=== PATIENT | male | born 1945 | race Caucasian/White ===

== ENCOUNTER → 2018-03-11 | Outpatient (CLI) | payer MEDICARE ==
[~2018-03-11] MED LIST: ALBUTEROL2.5 MG/31 INH; AMARYL4 MG; AMARYL4 MG PO; ARICEPT 5 MG TAB5 MG PO; ARICEPT10 M1 PO; ASA81BEC PO; AZITHROMYCIN 2250 MG PO; BACTRIM DS TAB1 EACH PO; CEFPODOXIME PR200 M1 PO; CIPROFLOXACIN500 M1 PO; CIPROFLOXACIN500 M3; CIPROFLOXACIN500 M3 PO; CLEOCIN HCL150 MG PO; CLONAZEPAM 0.50.5 M1 PO; CLONAZEPAM 1 MG1 M1; DOCUSATE SODIU100 MG; DUONEB 2.5-0.5 M3 ML INH; FINASTERIDE5 MG PO; FLOMAX0.4 MG PO; FUROSEMIDE 40 M40 M1 PO; FUROSEMIDE 40 M40 MG PO; GLUCOPHAGE500 MG; GLUCOPHAGE500 MG PO; HYDROCODON-ACE1 EAC7 PO; HYDROCODON-ACE1 EAC8 PO; HYDROCODONE-AP1 EAC6 PO; K-DUR 20 MEQ T20 MEQ PO; KEFLEX500 MG; KEFLEX500 MG PO; KLONOPIN0.5 MG PO; LASIX 40 MG TAB40 M2 PO; LASIX 80 MG TAB80 M1; LEVAQUIN 500 M500 M2 PO; LEVOFLOXACIN750 MG PO; LISINOPRIL10 MG PO; LOW DOSE ASPIRI81 M1 PO; MAGNESIUM OXID200 MG PO; MAGOX 400400 MG PO; METFORMIN HCL500 MG PO; MUCINEX TA600 MG/TA2 PO; MUCUS RELIEF600 M1 PO; MUPIROCIN22 GM TOP; NEURONTIN 300300 M1 PO; NORCO 5-325 TA1 EACH PO; NORVASC5 MG PO; POTASSIUM20 PO; PREDNISONE 10 M10 MG PO; PROTONIX40 M1 PO; PYRIDIUM200 M1 PO; TAMSULOSIN HCL0.4 M1; VITAMINC500 PO; ZAROXOLYN 5MG TA5 M1 PO; ZAROXOLYN 5MG TA5 MG PO
== END ==
LOC: M.WC 07:56
DX: E11.622 Type 2 diabetes mellitus with other skin ulcer (principal); L97.821 Non-pressure chronic ulcer of other part of left lower leg limited to breakdown of skin; I87.312 Chronic venous hypertension (idiopathic) with ulcer of left lower extremity; I50.9 Heart failure, unspecified; K21.9 Gastro-esophageal reflux disease without esophagitis; E66.9 Obesity, unspecified; G47.30 Sleep apnea, unspecified; G30.8 Other Alzheimer's disease; F02.80 Dementia in other diseases classified elsewhere, unspecified severity, without behavioral disturbance, psychotic disturbance, mood disturbance, and anxiety; Z68.41 Body mass index [BMI] 40.0-44.9, adult; Z79.82 Long term (current) use of aspirin

== ENCOUNTER → 2018-03-18 | Outpatient (CLI) | payer MEDICARE | LOC: M.WC 01:33 | DX: E11.622 Type 2 diabetes mellitus with other skin ulcer (principal); L97.821 Non-pressure chronic ulcer of other part of left lower leg limited to breakdown of skin; I87.312 Chronic venous hypertension (idiopathic) with ulcer of left lower extremity; I50.9 Heart failure, unspecified; E66.9 Obesity, unspecified; G47.30 Sleep apnea, unspecified; K21.9 Gastro-esophageal reflux disease without esophagitis; G30.9 Alzheimer's disease, unspecified; F02.80 Dementia in other diseases classified elsewhere, unspecified severity, without behavioral disturbance, psychotic disturbance, mood disturbance, and anxiety; Z68.41 Body mass index [BMI] 40.0-44.9, adult ==

== ENCOUNTER → 2018-03-25 | Outpatient (CLI) | payer MEDICARE | LOC: M.WC 04:33 | DX: E11.622 Type 2 diabetes mellitus with other skin ulcer (principal); I87.312 Chronic venous hypertension (idiopathic) with ulcer of left lower extremity; L97.821 Non-pressure chronic ulcer of other part of left lower leg limited to breakdown of skin; I89.0 Lymphedema, not elsewhere classified; I50.9 Heart failure, unspecified; G47.30 Sleep apnea, unspecified; G30.9 Alzheimer's disease, unspecified ==

== ENCOUNTER → 2018-04-01 | Outpatient (CLI) | payer MEDICARE | LOC: M.WC 04:49 | DX: E11.622 Type 2 diabetes mellitus with other skin ulcer (principal); L97.821 Non-pressure chronic ulcer of other part of left lower leg limited to breakdown of skin; I87.312 Chronic venous hypertension (idiopathic) with ulcer of left lower extremity; I50.9 Heart failure, unspecified; E66.9 Obesity, unspecified; G47.30 Sleep apnea, unspecified; G30.9 Alzheimer's disease, unspecified; K21.9 Gastro-esophageal reflux disease without esophagitis; F02.80 Dementia in other diseases classified elsewhere, unspecified severity, without behavioral disturbance, psychotic disturbance, mood disturbance, and anxiety; Z68.41 Body mass index [BMI] 40.0-44.9, adult ==

== ENCOUNTER → 2018-04-08 | Outpatient (CLI) | payer MEDICARE | LOC: M.WC 03:03 | DX: E11.622 Type 2 diabetes mellitus with other skin ulcer (principal); L97.828 Non-pressure chronic ulcer of other part of left lower leg with other specified severity; I87.312 Chronic venous hypertension (idiopathic) with ulcer of left lower extremity; E66.9 Obesity, unspecified; I50.9 Heart failure, unspecified; K21.9 Gastro-esophageal reflux disease without esophagitis; G47.30 Sleep apnea, unspecified; G30.9 Alzheimer's disease, unspecified; F02.80 Dementia in other diseases classified elsewhere, unspecified severity, without behavioral disturbance, psychotic disturbance, mood disturbance, and anxiety; Z68.41 Body mass index [BMI] 40.0-44.9, adult ==

== ENCOUNTER 2019-03-22 16:12 | Inpatient (IN) | payer OTHER ==
[~2019-03-22] VITALS: Ht 175.3 cm; Wt 133.8 kg
[2019-03-22 16:25] VITALS: BP 151/79
[2019-03-22] MEDS ORDERED: FINASTERIDE5 MG PO (16:30)
[2019-03-22] MEDS ORDERED: FLOMAX0.4 MG PO (16:30)
[2019-03-22 16:53] LABS: HEMATOCRIT 46.6 % (42.0-52.0); HEMOGLOBIN 15.4 gm/dL (14.0-18.0); MCH 29.1 pg (26.0-34.0); MCHC 33.1 g/dL (28.0-37.0); MPV 9.1 fl. (7.2-11.1); NUCLEATED RBCS 0 /100WBC; PLATELET COUNT* 138 thou/uL (150-400); RDW-CV 15.2 % (10.5-14.5); WBC 13.5 thou/uL (4.0-11.0)
[2019-03-22 17:04] LABS: APTT 25.3 Seconds (25.0-31.3); PROTIME 10.4 Seconds (9.20-11.50)
[2019-03-22 17:05] LABS: ANION GAP 7 mmol/L (7-16); BUN 24 mg/dL (7-18); CALCIUM 8.4 mg/dL (8.5-10.1); CHLORIDE 97 mmol/L (98-107); CO2 32 mmol/L (21-32); CREATININE 1.4 mg/dL (0.6-1.3); GLUCOSE 381 mg/dL (70-99); POTASSIUM 4.1 mmol/L (3.5-5.1); SODIUM 136 mmol/L (136-145)
[2019-03-22 17:14] LABS: ALBUMIN 3.3 g/dL (3.4-5.0); ALKALINE PHOSPHATASE 90 U/L (46-116); NT-PRO BRAIN NAT PEPTIDE 317 pg/mL (<300); SGOT 10 U/L (15-37); SGPT 22 U/L (30-65); TOTAL BILIRUBIN 1.9 mg/dL (<0.1-1.0); TOTAL PROTEIN 7.6 g/dL (6.4-8.2); TROPONIN-I LEVEL <0.06 ng/mL (<0.06)
[2019-03-22 17:40] LABS: ABSOLUTE LYMPHOCYTES 0.5 thou/uL (0.8-5.3); ABSOLUTE MONOCYTES 1.1 thou/uL (0.0-1.2); ABSOLUTE NEUTROPHILS 11.9 thou/uL (1.6-8.1); ANISOCYTOSIS Occasional
[2019-03-22 17:41] LABS: LARGE PLATELETS RARE; PLATELET ESTIMATE ADEQUATE
--- NOTE | 2019-03-22 18:43 | NUR ---
PT GIVEN ICE WATER PER REQUEST.
[2019-03-22 19:15] VITALS: BP 158/82
[2019-03-22 21:00] VITALS: BP 105/60
[2019-03-22] MEDS ORDERED: METFORMIN HCL500 MG PO (22:48)
[2019-03-23 00:25] VITALS: BP 149/99
[2019-03-23 04:30] VITALS: BP 125/72
[2019-03-23 05:22] LABS: HEMATOCRIT 44.2 % (42.0-52.0); HEMOGLOBIN 14.8 gm/dL (14.0-18.0); MCH 29.2 pg (26.0-34.0); MCHC 33.6 g/dL (28.0-37.0); MPV 9.5 fl. (7.2-11.1); RBC 5.08 mil/uL (4.50-6.00); RDW-CV 15.5 % (10.5-14.5); WBC 13.9 thou/uL (4.0-11.0)
[2019-03-23 05:39] LABS: ALBUMIN 2.9 g/dL (3.4-5.0); CALCIUM 8.3 mg/dL (8.5-10.1); CREATININE 1.4 mg/dL (0.6-1.3); MAGNESIUM 1.7 mg/dL (1.8-2.4); POTASSIUM 4.4 mmol/L (3.5-5.1); TOTAL BILIRUBIN 2.2 mg/dL (<0.1-1.0); TOTAL PROTEIN 7.2 g/dL (6.4-8.2)
--- NOTE | 2019-03-23 05:39 | NUR ---
REPORT RECIEVED FROM ER. PT ORIENTED TO ROOM, CALL LIGHT SHOWN, FALL AGREEMENT WENT OVER, PT STATED UNDERSTANDING. PT REFUSED BED ALARM, AND EDUCATED ON RISKS OF FALLING PT KEPT SAYING "I AM FINE". PICTURES OF CHOCO ENGEL TAKEN, ER STATED THAT THEY REMOVED DRESSINGS. PT STATES THAT HIS GRANDSON WRAPS THEM, AND REFUSED TO HAVE THEM REWRAPPED THIS SHIFT STATING "I AM GOING HOME TOMORROW ANYWAYS." PT ALSO STATES THAT HE HAS COCCYX WOUND BUT REFUSED TO LET THIS RN SEE OR TAKE A PICTURE OF IT. IV PATENT. TELE MONITOR IN PLACE. NO REPORTS OF PAIN OR NAUSEA. WILL CONTINUE WITH PLAN OF CARE.
[2019-03-23 08:00] VITALS: BP 121/67
--- NOTE | 2019-03-23 08:27 | NUR ---
Pt is A&O. Resides at home with his . Pt states that he is his 's caregiver post a CVA in 2007. Pt has a lady that comes in daily, to assist with , cook and clean. Family is home with while Pt is in the hospital. Pt uses a cane for mobility. Pt has home o2 and a trilogy through [employer]. Normally independent and active. Hx of [facility]. No hx of SNF. Goal is home at dc, Pt states that he may want HH at dc. Following.
--- NOTE | 2019-03-23 09:46 | EKG ---
[place] [address] ELECTROCARDIOGRAM REPORT Name: KRAIG HERNANDEZ Room: [address] ADM IN .R.#: [id number] Admission: 03/22/19 Attend Phys: Lyndsay Glynn MD Discharge: Date of : 41 Report #: [id number] THIS REPORT FOR: //name// [facility] ED Test Date: 2019-03-22 Test Time: 16:54:27 Pat Name: KRAIG HERNANDEZ Department: Room: [facility] Gender: M Mft: : 1945 Requested By: Jose Mena Order Number: [id number] MD: Anastacio Schulte Measurements Intervals [place] Rate: 108 P: -53 MA: 152 QRS: -30 QRSD: 121 T: 34 QT: 340 QTc: 456 Interpretive Statements Sinus or ectopic atrial tachycardia Ventricular premature complex Right bundle branch block Compared to ECG 08/26/2016 12:31:56 Right bundle-branch block now present Sinus rhythm no longer present Electronically Signed On 03-23-2019 9:45:57 CDT by Anastacio Schulte [email or web address] <ELECTRONICALLY SIGNED> By: Anastacio Schulte MD, [facility] 03/23/19 0945 [id number] [id number] Anastacio Schulte MD, [facility] /EPI
[2019-03-23 12:15] VITALS: BP 127/61
--- NOTE | 2019-03-23 15:34 | NUR ---
ASSUMED PT CARE AT 0800, AOX4, UP SBA, O2 SAT 90'S 2L NC. TRACING SA, BBB ON TELE. DENIES PAIN. PT FOR ACCU CHECK. ON CARB CONTROL DIET. EDEMA ON BILATERAL LOWER EXTREMITIES NOTED. REDNESS ON COCCYX AREA NOTED, BARRIER CREAM GIVEN. IV ACCESS INTACT, FLUID RUNNING. LAST BM 03/22/19. PT FOR CT CHEST. VSS, AM ASSESSMENT CHARTED. MEDS GIVEN PER SEP. CALL LIGHT WITHIN REACH. WILL CONTINUE TO MONITOR.
--- NOTE | 2019-03-23 16:29 | NUR ---
Pt states that he wears a Trilogy at home when he wants. He stated that Dr. Downing said he was not required to wear it, so he does not wear it much at all. He states that it has been 2 months since he has worn it. He is not having his brought in and will not wear one of hospital Bipaps.
[2019-03-23 16:43] VITALS: BP 143/80
[2019-03-23 19:45] VITALS: BP 126/64
[2019-03-23 21:59] LABS: PO2 73.4 mmHg (75.0-100.0); pH 7.366 (7.340-7.450)
[2019-03-23 22:02] LABS: PCO2 50.7 mmHg (35.0-45.0)
[2019-03-24] VITALS: BP 112/56
[2019-03-24 04:00] VITALS: BP 121/65
[2019-03-24 04:58] LABS: ABSOLUTE LYMPHOCYTES 0.7 thou/uL (0.8-5.3); ABSOLUTE MONOCYTES 0.9 thou/uL (0.0-1.2); ABSOLUTE NEUTROPHILS 12.9 thou/uL (1.6-8.1); BASOPHILS 0.1 %; HEMATOCRIT 42.7 % (42.0-52.0); HEMOGLOBIN 14.2 gm/dL (14.0-18.0); LYMPHOCYTES 4.5 %; MCH 29.1 pg (26.0-34.0); MCHC 33.3 g/dL (28.0-37.0); MCV 87.6 fL (80.0-100.0); MONOCYTES 6.5 %; MPV 9.9 fl. (7.2-11.1); NUCLEATED RBCS 0 /100WBC; PLATELET COUNT* 125 thou/uL (150-400); POLYS 88.9 %; RBC 4.88 mil/uL (4.50-6.00); WBC 14.5 thou/uL (4.0-11.0)
[2019-03-24 05:09] LABS: ANION GAP 6 mmol/L (7-16); BUN 35 mg/dL (7-18); CALCIUM 8.3 mg/dL (8.5-10.1); CHLORIDE 99 mmol/L (98-107); CHOLESTEROL 132 mg/dL (<200); CO2 31 mmol/L (21-32); CREATININE 1.4 mg/dL (0.6-1.3); GLUCOSE 118 mg/dL (70-99); HDL CHOLESTEROL 80 mg/dL (>40); LDL CHOLESTEROL 42 mg/dL (<100); POTASSIUM 4.3 mmol/L (3.5-5.1); SODIUM 136 mmol/L (136-145); TC:HDL 1.7 Ratio (Not establshd); TRIGLYCERIDE 50 mg/dL (<150); VLDL 10 mg/dL (<40)
[2019-03-24 05:12] LABS: SERUM ASSESSMENT Clear
[2019-03-24 08:00] VITALS: BP 146/69
--- NOTE | 2019-03-24 08:14 | NUR ---
PT AWAKE MOST OF SHIFT. ASSESSMENT DOCUMENTED. MEDS GIVEN PER E-MAR. IV PATENT, FLUIDS FINISHED INFUSING. PT WEAKER AND MORE CONFUSED THIS SHIFT. PT NON COMPLIENT WITH O2, PT WHEEZY, DR NOTIFIED, ORDERS RECIEVED. PT NOT VOIDED THIS SHIFT BUT FELT URGE. BLADDER SCANNER READIN 676ML. NOTIFED. 3 NURSES UNABLE TO STRAIGHT CATH PATIENT, DR NOTIFED, UROLOGY CONSULTED. WILL CONTINUE WITH PLAN OF CARE.
[2019-03-24 12:43] VITALS: BP 105/53
[2019-03-24 13:00] LABS: BE 2.5 mmol/L (-2 to +3); PO2 68.4 mmHg (75.0-100.0); pH 7.371 (7.340-7.450)
[2019-03-24 13:06] LABS: PCO2 50.8 mmHg (35.0-45.0)
--- NOTE | 2019-03-24 15:48 | 2DMMODE ---
[place] [address] 2 D/M-MODE ECHOCARDIOGRAM Name: KRAIG HERNANDEZ Room: [address] IN [facility]#: [id number] Admission: 03/22/19 Attend Phys: Lyndsay Glynn, Discharge: Date of : 41 Date of Service: 03/24/19 1547 Report #: [id number] THIS REPORT FOR: //name// APPROVED REPORT Study performed: 03/24/2019 14:37:04 EXAM: Comprehensive 2D, Doppler, and color-flow Echocardiogram Patient Location: In-Patient Room #: 220 Status: routine BSA: 2.43 HR: 122 bpm BP: 146/69 mmHg Rhythm: NSR Other Information Technically limited study due to poor endocardial definition, body habitus. Indications Dyspnea Echo Enhancing Agent Indication: Endocardial border delineation Agent(s) / Amount(s) Used: Optison 3 cc 2D Dimensions IVSd: 13.86 (7-11mm) LVOT Diam: 21.33 (18-24mm) LVDd: 40.71 mm PWd: 12.53 (7-11mm) Ascending Ao: 30.81 (22-36mm) LVDs: 27.67 (25-40mm) Aortic Root: 35.07 mm Volumes Left Atrial Volume (Systole) LA ESV Index: 26.40 mL/m2 Aortic Valve AoV Peak Brian.: 1.49 m/s AO Peak Gr.: 8.89 mmHg LVOT Max P.24 mmHg AO Mean Gr.: 5.95 mmHg LVOT Mean P.22 mmHg LVOT Max V: 1.03 m/s AO V2 VTI: 23.54 cm LVOT Mean V: 0.69 m/s JASON (VTI): 2.22 cm2 LVOT V1 VTI: 14.62 [place] [address] 2 D/M-MODE ECHOCARDIOGRAM Name: KRAIG HERNANDEZ Room: [address] IN [facility]#: [id number] Admission: 03/22/19 Attend Phys: Lyndsay Glynn, Discharge: Date of : 41 Date of Service: 03/24/19 1547 Report #: [id number] Mitral Valve E/A Ratio: 1.09 MV Decel. Time: 163.36 ms MV E Max Brian.: 1.05 m/s MV PHT: 47.37 ms MVA (PHT): 4.64 cm2 Pulmonary Valve PV Peak Brian.: 1.03 m/s PV Peak Gr.: 4.28 mmHg Tricuspid Valve RAP Estimate: 15.00 mmHg TR Peak Gr.: 30.52 mmHg RVSP: 45.00 mmHg PA Pressure: 45.00 mmHg Left Ventricle The left ventricle is normal size. There is normal LV segmental wall motion. Mild concentric left ventricular hypertrophy. Left ventricular systolic function is normal. The left ventricular ejection fraction is within the normal range. LVEF is 55-60%. The left ventricular diastolic function is normal. Right Ventricle The right ventricle is normal size. The right ventricular systolic function is normal. Atria The left atrium size is normal. The right atrium size is normal. Aortic Valve The Aortic valve is sclerotic. No aortic regurgitation is present. There is no aortic valvular stenosis. Mitral Valve The mitral valve is normal in structure. There is no mitral valve regurgitation noted. No evidence of mitral valve stenosis. Tricuspid Valve The tricuspid valve is normal in structure. Mild tricuspid regurgitation. estimated pa pressure 50 mm Hg Pulmonic Valve The pulmonary valve is normal in structure. There is no pulmonic [place] [address] 2 D/M-MODE ECHOCARDIOGRAM Name: KRAIG HERNANDEZ Merlene Room: [address]#: [id number] Admission: 03/22/19 Attend Phys: Lyndsay Glynn, Discharge: Date of : 41 Date of Service: 03/24/19 1547 Report #: [id number] Great Vessels The aortic root is normal in size. IVC is dilated and collapses <50% with inspiration. Pericardium There is no pericardial effusion. <Conclusion> Mild concentric left ventricular hypertrophy. LVEF is 55-60%. The Aortic valve is sclerotic. Mild tricuspid regurgitation. estimated pa pressure 50 mm Hg <ELECTRONICALLY SIGNED> By: Anastacio Schulte MD, FACC 03/24/19 1547 1547 [id number] Anastacio Schulte MD, FACC /INF
[2019-03-24 15:56] VITALS: BP 134/64
--- NOTE | 2019-03-24 17:35 | NUR ---
ASSUMED PT CARE AT 0800, AOX3, UP WITH ASSIST, O2 SAT 90'S 2L NC. PT TRACING SINUS TACH, BBB, 1ST DEGREE ON TELE.PT FEELS TIRED TODAY, HAVE SOA, COMPLAINS OF LEG PAIN. PT HAS UROLOGY CONSULT AND WOUND CONSULT. PT HAS JUAREZ CATH DRAINING WELL. PT FOR ACCU CHECK. PT HAD ECHO. HAD PCO2 CRITICAL, NOTIFIED. AM ASSESSMENT CHARTED. MEDS GIVEN PER SEP. CALL LIGHT WITHIN REACH. WILL CONTINUE TO MONITOR.
[2019-03-24 20:40] VITALS: BP 126/66
[2019-03-25] VITALS: BP 134/70
[2019-03-25 04:00] VITALS: BP 145/68
[2019-03-25 04:28] LABS: ABSOLUTE LYMPHOCYTES 0.7 thou/uL (0.8-5.3); ABSOLUTE MONOCYTES 1.2 thou/uL (0.0-1.2); ABSOLUTE NEUTROPHILS 12.5 thou/uL (1.6-8.1); BASOPHILS 0.1 %; LYMPHOCYTES 4.8 %; MCH 28.8 pg (26.0-34.0); MCHC 32.6 g/dL (28.0-37.0); MCV 88.3 fL (80.0-100.0); MONOCYTES 8.2 %; MPV 10.1 fl. (7.2-11.1); NUCLEATED RBCS 0 /100WBC; PLATELET COUNT* 116 thou/uL (150-400); POLYS 86.9 %; RBC 4.53 mil/uL (4.50-6.00); RDW-CV 15.1 % (10.5-14.5); WBC 14.4 thou/uL (4.0-11.0)
[2019-03-25 05:19] LABS: CALCIUM 7.7 mg/dL (8.5-10.1); CREATININE 1.3 mg/dL (0.6-1.3); MAGNESIUM 2.3 mg/dL (1.8-2.4); POTASSIUM 3.7 mmol/L (3.5-5.1)
--- NOTE | 2019-03-25 05:48 | NUR ---
PT SLEPT MOST OF SHIFT. ASSESSMENT DOCUMENTED. MEDS GIVEN PER E-SEP. IV PATENT. JUAREZ DRAINING DEPENDANTLY. PT SLEPT IN BED WITH HOME TRILOGY ON. O2 TURNED UP TO 3.5 BLED INTO TRILOGY TO KEEP SATS OVER 90%. WILL CONTINUE WITH PLAN OF CARE.
--- NOTE | 2019-03-25 14:49 | NUR ---
WOUND CARE NOTE: CONSULT RECEIVED FOR LYMPHEDEMA PATIENT PRESENTS WITH WHAT APPEARS TO BE CHRONIC VENOUS STASIS R/T HEMOSIDERING STAINING. RIGHT INSTEP: 32.2CM RIGHT ANKLE: 35.5 RIGHT CALF: 48 LEFT INSTEP: 27 LEFT ANKLE: 29.5 LEFT CALF: 42 NO OPEN WOUNDS NOTED. APPLIED 4-LAYER WRAPS TO BILATERAL LEGS. EDUCATED PATIENT ON KEEPING LEGS ELEVATED TO PROMOTE EDEMA REDUCTION, COMMUNICATED UNDERSTANDING, BUT WILL NEED REINFORCEMENT. EDUCATED ON NOTIFYING RN IF WRAPS FEEL TOO TIGHT, COMMUNICATED UNDERSTANDING. RECOMMEND KEEP LEGS ELEVATED WHEN AT REST FOLLOW UP WITH OUTPATIENT LYMPHEDEMA THERAPY-CARD WITH PHONE # GIVEN. HH TO HAVE LAYERED WRAPS CHANGED M-W-F PREFERRED
[2019-03-25 16:00] VITALS: BP 105/54
--- NOTE | 2019-03-25 16:28 | NUR ---
PT A/O X'S 4. VSS. AFEBRILE. PT UP WITH 1 AND WALKER TO BATHROOM. PT FELT SHORT OF BREATH, O2 OFF. TRIOLOGY PLACED PER PT REQUEST. OXYGEN SATURATION WENT FROM 88% TO 97%. WOUND CARE SAW PATIENT AND LEGS WRAPPED BILATERALLY.
--- NOTE | 2019-03-25 18:57 | NUR ---
ASSUMED CARE OF PT AT APPROX 1645, PT A/O X4, UP WITH ASSIST/WALKER TO CHAIR FOR DINNER. DENIES PAIN, ANN DD. INSULIN HELD DUE TO LOWER BLOOD GLUCOSE. O2 SAT 93% ON 3L.PT CALLS APPROPRIATLY FOR NEEDS. WILL CONTINUE TO MONITOR.
[2019-03-25 19:40] VITALS: BP 123/72
--- NOTE | 2019-03-25 23:33 | NUR ---
ASSUMED CARE OF PT AT 1900. PT IS ALERT AND ORIENTED. VSS. PERRLA. NO COMPLAINTS OF PAIN. UP WITH 1 ASSIST. PT IS CURRENTLY ON HIS HOME TRILOGY WITH 2 LITERS OF O2. PT IS IN SINUS RYTHM ON THE TELEMETRY. PT IS RESTING COMFORTABLY IN BED. RESPIRATIONS ARE EVEN AND NONLABORED. WILL CONTINUE TO MONITOR PT.
[2019-03-26] VITALS: BP 142/78
[2019-03-26 04:00] VITALS: BP 115/55
[2019-03-26 05:25] LABS: CALCIUM 7.7 mg/dL (8.5-10.1); CREATININE 1.3 mg/dL (0.6-1.3); POTASSIUM 3.5 mmol/L (3.5-5.1)
--- NOTE | 2019-03-26 08:44 | NUR ---
LATE ENTRY FOR 03/24/19 @14:30: PATIENT SEEN FOR FOR WOUND CARE AT PATIENT'S REQUEST. PATIENT PRESENTS WITH 4+ PITTING EDEMA TO BLE WITH RUBOR AND PURPLISH DISCOLORATION ON DISTAL FEET. PATIENT USUALLY WEARS FARROW WRAPS FOR COMPRESSION WHICH HE BROUGHT WITH HIM. WAS ABLE TO DOPPER PT AND DP PULSES BILATERALLY AND WERE BIPHSIC. PATIENT WAS REPORTING THAT HE IS UNABLE TO SLEEP IN A BED AND USUALLY SLEEPS IN A CHAIR BECAUSE HE BECOMES SOB. ALSO STATES THIS IMPROVES IF SITTING UPRIGHT AFTERWARDS. PATIENT ENCOURAGED TO WEAR HIS FARROW WRAPS AND LET INPATIENT WOUND CARE NURSE COME SEE HIM. PATIENT AGREES TO THIS.
[2019-03-26 11:57] VITALS: BP 141/75
--- NOTE | 2019-03-26 12:14 | NUR ---
Nutrition: Pt seen for pressure ulcer risk on coccyx. 4+ pitting edema in BLE, purplish feet noted by wound RN. Admitted with lymphedema. Has had CHO/low Na educ in past. CHO) controlled diet ordered. Wt: 295#. On insulin, albuterol. Labs: BG 50-152, albumin 2.9, elevated WBC. Beneprotein is ordered. GOALS: good po and protein intake, tight BG control. Mild risk.
[2019-03-26 15:58] VITALS: BP 129/67
[2019-03-26 19:15] VITALS: BP 124/76
[2019-03-26 20:58] LABS: BE 6.2 mmol/L (-2 to +3); PO2 74.3 mmHg (75.0-100.0); pH 7.356 (7.340-7.450)
[2019-03-26 21:01] LABS: PCO2 62.1 mmHg (35.0-45.0)
[2019-03-27 03:45] LABS: URINE BILIRUBIN NEGATIVE (Negative); URINE BLOOD 2+ (Negative); URINE CLARITY CLEAR; URINE COLOR YELLOW; URINE GLUCOSE-RANDOM NEGATIVE (Negative); URINE KETONES NEGATIVE (Negative); URINE LEUKOCYTES-REFLEX NEGATIVE (Negative); URINE NITRITE-REFLEX NEGATIVE (Negative); URINE PROTEIN TRACE (Negative); URINE UROBILINOGEN 0.2 E.U./dl (0.2-1.0)
[2019-03-27 04:00] VITALS: BP 125/68
--- NOTE | 2019-03-27 04:00 | NUR ---
ASSUMED CARE OF PT AT 1900. PT IS VERY [place]. PT STATES HE DOESNT FEEL RIGHT. DR NOTIFIED AND ABG DONE. PTS CO2 ELEVATED AT 62. PULMONARY IS CONSULTED. PT ENCOURAGED TO KEEP HIS TRILOGY ON. PT HAS KEPT IT ON FOR MOST OF THE NIGHT TONIGHT. PT IS IN SINUS RYTHM ON THE TELEMETRY. PT IS RESTING COMFORTABLY IN BED. RESPIRATIONS ARE EVEN AND NONLABORED. WILL CONTINUE TO MONITOR PT.
[2019-03-27 04:46] LABS: HYALINE CASTS 4-10 Moderate /LPF (None Seen); SQUAMOUS 0-3 Few /LPF (0-3)
[2019-03-27 04:47] LABS: ABSOLUTE EOSINOPHILS 0.1 thou/uL (0.0-0.7); ABSOLUTE LYMPHOCYTES 0.5 thou/uL (0.8-5.3); ABSOLUTE NEUTROPHILS 7.3 thou/uL (1.6-8.1); BASOPHILS 0.2 %; EOSINOPHILS 0.7 %; HEMATOCRIT 39.3 % (42.0-52.0); HEMOGLOBIN 12.9 gm/dL (14.0-18.0); LYMPHOCYTES 5.2 %; MCH 28.8 pg (26.0-34.0); MCHC 32.8 g/dL (28.0-37.0); MCV 87.9 fL (80.0-100.0); MONOCYTES 10.9 %; MPV 9.7 fl. (7.2-11.1); NUCLEATED RBCS 0 /100WBC; PLATELET COUNT* 139 thou/uL (150-400); RBC 4.47 mil/uL (4.50-6.00); RDW-CV 15.3 % (10.5-14.5); WBC 8.8 thou/uL (4.0-11.0)
[2019-03-27 04:47] LABS: BACTERIA-REFLEX None Seen /HPF (None Seen); CRYSTALS None Seen /LPF (None Seen); URINE RBC 3-10 Few /HPF (0-2); URINE WBC-REFLEX None Seen /HPF (0-5)
[2019-03-27 05:07] LABS: CALCIUM 7.9 mg/dL (8.5-10.1); CREATININE 1.2 mg/dL (0.6-1.3); POTASSIUM 3.3 mmol/L (3.5-5.1)
[2019-03-27 11:37] VITALS: BP 125/74
[2019-03-27 15:24] VITALS: BP 127/66
[2019-03-28] VITALS: BP 150/79
[2019-03-28 03:46] VITALS: BP 155/67
[2019-03-28 04:35] LABS: CALCIUM 8.1 mg/dL (8.5-10.1); CREATININE 1.1 mg/dL (0.6-1.3); MAGNESIUM 1.9 mg/dL (1.8-2.4); POTASSIUM 3.2 mmol/L (3.5-5.1)
--- NOTE | 2019-03-28 07:36 | NUR ---
PT CARE ASSUMED AT 1930. SAT MAINTAINED IN [facility]. PT CONFUSED LAST NIGHT. SAYS WHEN HE CLOSE HIS EYES AND OPENS THEM UP, SEES WEIRD STUFF ON THE WALL WHICH IS NOT NORMAL. THIS NURSE ASKED IF HE IS HEARING ANY VOICES ON HIS HEAD, WHICH HE DENIED. DENIES PAIN. PT IS IMPULSIVE, REFUSES TO BE ON FALL PRECAUTIONS, EDUCATION GIVEN NEEDS REINFORCEMENT. FAMILY MEMBERS AT BEDSIDE FOR A WHILE. CALL LIGHT WITHIN REACH AND BED IN LOW POSITION. HOURLY ROUNDING DONE FOR PT SAFETY. THIS AM PT SEEMS LITTLE MORE CALM. SLEPT IN THE RECLINER.
[2019-03-28 08:00] VITALS: BP 145/84
--- NOTE | 2019-03-28 08:24 | CON ---
[address] [address] CONSULTATION Name: KRAIG HERNANDEZ Room: [address] IN ..#: [id number] Admission: 03/22/19 Attend Phys: Lyndsay Glynn MD Discharge: Date of : 41 Report #: [id number] THIS REPORT FOR: //name// CC: Anastacio Glynn DATE OF SERVICE: 03/27/2019 ATTENDING PHYSICIAN: Dr. Gutierrez. LOCATION: The patient is located in room #220. INDICATION FOR CONSULTATION: Acute hypoxic hypercarbic respiratory failure, obstructive sleep apnea and hypoventilation syndrome. CLINICAL SUMMARY: The patient is a 73-year-old male with diabetes mellitus type 2, who had had shortness of breath and dizziness over the 3-4 days prior to admission. It was worse when he stood up. He is taking care of his 's stroke and she has had difficulties and problems at home. His son was at the bedside and helped with history. He denies any cough or wheezing. He is chronically short of breath and he does not like to wear his Trilogy. He has a Trilogy at home. He has been on oxygen for 4-5 years at home for obstructive sleep apnea. He falls asleep while he drives a car and he sleeps sitting up in the chair. He does not lay flat in bed and he has had problems like this for the past several years. He is in large term denial for that. He has not lost any weight. He does not exercise or get up and move around and basically now he wants to be transferred to another facility because he does not think he is getting the care he needs. Somebody helped him with breakfast this morning. He is still not wearing his Trilogy at night and during the day and he desaturates anywhere from 2-4 liters. He will go down to 80-85% and when he put his Trilogy on he comes back up to 93% on the 3 liters. Denies cough or wheezing or smoking history. PAST MEDICAL HISTORY: He has had a history of diabetes mellitus type 2 with hyperglycemia. He has had some chronic left lower lobe infiltrate; looks like old scar tissue and chest wall pain; had some mild fluid overload and pulmonary artery hypertension, but the ejection fraction has been around 55-60%. ALLERGIES: He has no known medical allergies. PAST SURGICAL HISTORY: It looks he has had lymphedema in both legs, inguinal hernia repair in 63, appendectomy at age 4, tonsillectomy as a child. He had a TURP in 04/2008 and again had a history of kidney stones and chronic kidney disease stage 3. OUTPATIENT MEDICATIONS: Include finasteride 5 mg daily, furosemide [address] [place] [address] CONSULTATION Name: KRAIG HERNANDEZ Merlene Room: [address] IN [facility]#: [id number] Admission: 03/22/19 Attend Phys: Lyndsay Glynn MD Discharge: Date of : 41 Report #: [id number] daily, gabapentin 300 mg t.i.d., metformin 500 mg b.i.d., donepezil or Aricept 10 mg daily for some short-term memory loss, amlodipine or Norvasc 5 mg daily, tamsulosin 4 mg daily, glyburide 2 mg daily. He is on some p.r.n. breathing treatments at this time and again he supposed to be on 3 liters and then Trilogy at night and with naps during the day. FAMILY HISTORY: Positive for diabetes. SOCIAL HISTORY: The patient has been twice. This is his second . He is with his son who is his older adult son who I believe is his durable power of senior attorney, has a different mother. He seems quite supportive. The patient is a nonsmoker, nondrinker. He has had some short-term memory loss. REVIEW OF SYSTEMS: A 14-point review of systems reviewed and negative except for pertinent positives noted in the HPI and again basically those included short-term memory loss. He denies any numbness, tingling. He does have weakness when he tries to stand; legs have been swollen. PHYSICAL EXAMINATION: GENERAL: This is a somewhat agitated 73-year-old male who is not happy to see me. He says he wants to get transferred out of this hospital. VITAL SIGNS: Stable. Blood pressure was 125/70, his heart rate was 84, respirations were 16 and temperature was 36.4 degrees. He is 5 feet 9 inches tall, weight is 133 kilograms or 280 pounds. BMI is 43. HEENT: Pupils are midpoint and reactive. Pharynx is crowded with a Mallampati score of 3-4. NECK: Thick with about size 19 collar. He has a izquierdo on with it. CHEST: Shows diminished breath sounds at the left lung base. Right chest relatively clear with decreased excursion. CARDIOVASCULAR: Regular rate and rhythm without murmur, gallop or rub. Heart rate is 84. ABDOMEN: Obese. EXTREMITIES: Trace edema. He appears to have lymphedema and they are wrapped in [place] bandages. NEUROLOGIC: He has poor short-term memory or insight. He will move all fours to commands. He knows who his son is and who his is. He recognizes Dr. Pérez, his neighbor as he walked into the room though. LABORATORY DATA: Hemoglobin is 13 with a white count of 8800, platelets 139,000. Normal differential. Sodium is 142, potassium is 3.3, being repleted, bicarbonate 36, BUN is 40 with a creatinine of 1.2 and glucose is 121 up to 230, calcium is 7.9. TSH is 0.3. Free T4 is 1.0. ABGs initially showed on 2 liters pO2 of 73, pH 7.37, pCO2 is 51 with a bicarbonate of 28 and a sat of 93% on 03/26/2019. Last night on 3 liters, pO2 was 74, pH 7.36, pCO2 is up to 62, bicarbonate is 34, sat was 94%. Chest x-ray and CT of the chest shows left lower lobe infiltrate and scarring which appears to be chronic [place] [address] CONSULTATION Name: KRAIG HERNANDEZ Merlene Room: [address] IN [facility]#: [id number] Admission: 03/22/19 Attend Phys: Lyndsay Glynn MD Discharge: Date of : 41 Report #: [id number] parenchymal fibrosis. He has decreased volume in his left lung. Right lung is normal. Heart is upper limits of normal. Echocardiogram done within the last several months shows a left ventricular ejection fraction 55-60%, PA systolic pressure of 50 consistent with pulmonary hypertension. IMPRESSION: Acute hypoxic hypercarbic respiratory failure related to obstructive sleep apnea, obesity, hypoventilation syndrome, inability to wear his Trilogy. PLAN: Again, discussed with the patient's nurse Jose and his son at the bedside. He does need to wear Trilogy for 8 hours at night and with naps an hour or two during the day. We will keep him on 3 liters and see how he does with that. Keep his sats 88-90%. Continue to follow up on his thyroid and see if we can improve compliance. If not, we need to talk about code and ventilator status; I think the patient is going to do poorly. He would do poorly on the ventilator. So, we may have to get his current involved with this also and find out who exactly is his durable power of senior attorney. We can do that. He may need some Diamox to cut down his pCO2 levels at some point in time; so in the next day or two, we will follow up on a blood gas and see where we proceed from there. Overall prognosis is guarded. He does have some dementia and I think that also is raising havoc with his current mental status and condition. This has been a 36-minute critical care consult. <ELECTRONICALLY SIGNED> By: Charlie Pereira MD 03/28/19 0824 1045 [id number] Pereira MD /nt
[2019-03-28 12:47] VITALS: BP 137/69
[2019-03-28 16:00] VITALS: BP 158/79
[2019-03-28 21:30] VITALS: BP 136/76
--- NOTE | 2019-03-28 23:01 | NUR ---
PT CARE ASSUMED AT 1930. PT IS AGITATED AND IMPULSIVE. SAYS HE WANTS TO LEAVE, CAREGIVER PRESENT AT BEDSIDE. WANTING TO PULL HIS CATHETER. CHARGE NURSE AND ENGINEERING AIDE NOTIFIED OF THE SITUATION. PHYSICIAN INFORMED, RECIEVED ORDER FOR ATIVAN. RT LEG BANDAGE REMOVED BY RANJAN MARTINEZ REQUESTED BY FAMILY MEMBERS. FAMILY MEMBERS REQUESTED TO TRANSFER PT TO [facility]. CHARGE NURSE AND ENGINEERING AIDE NOTIFIED. FACE SHEET FAXED TO [facility] TEAM.
[2019-03-29] VITALS: BP 155/84
[2019-03-29 04:11] VITALS: BP 115/62
[2019-03-29 05:15] LABS: CREATININE 1.1 mg/dL (0.6-1.3); POTASSIUM 3.5 mmol/L (3.5-5.1)
[2019-03-29 08:19] VITALS: BP 97/47
[2019-03-29 09:07] VITALS: BP 97/47
--- NOTE | 2019-03-29 09:45 | NUR ---
ASSUMED CARE OF PT THIS AM AROUND 0715- PROPERTY DISPOSAL OFFICER IN PLACE ORDERED, TRACING SR WITH 1ST/BBB/PAC- UPON ASSESSMENT PT NOTED TO BE SLEEPING AND DROWSY WHEN AWAKENED- PT A&O X3, WITH NOTED INTERMITENT CONFUSSION- JUAREZ IN PLACE D/D DARK TEA COLORED URINE,CONT OF BOWEL- DIMINISHED LUNG SOUNDS NOTED, RESP EVEN AND UN-LABORED- VSS, O2 SAT 94% WITH TRIOLOGY IN PLACE THIS AM- ABD FIRM/OBESE/NON-TENDER, BS X4 QUADS- LAST BM REPORTED THIS AM- IV NOTED TO LEFT WRIST INTACT, IV ABT GIVEN THIS AM PRESCIBED- SET UP WITH BREAKFAST NOTED, GOOD PO INTAKE NOTED, BS MONITORED WITH INSULIN PRESCIBED- DRESSINGS/MARY WRAPS NOTED IN PLACE TO LLE, RLE DRESSING NOTED TO BE REMOVED PER FAMILY REQUEST ON PRIOR SHIFT- LEG ELEVATION IN PLACE INDICATED- PT DENIES ANY C/O PAIN/DISCOMFORT AT THIS TIME- CALL LIGHT AND PERSONAL BELONGINGS WITH IN REACH- HOURLY ROUNDS IN PLACE R/T SAFETY/NEEDS- HOUSE SOUP IN PROCESS OF VERIFYING IF TRANSFER TO [facility] PER PT REQUEST WITH BE ACCEPTED OR NOTED- ALL NEEDS MET AT THIS TIME-WCTM
[2019-03-29 10:19] LABS: BE 14.5 mmol/L (-2 to +3); PO2 66.4 mmHg (75.0-100.0); pH 7.438 (7.340-7.450)
[2019-03-29 10:21] LABS: PCO2 63.6 mmHg (35.0-45.0)
== END 2019-03-29 12:09 | disposition short-term general hospital (02) | DRG 177 ==
LOC: M.ERS 16:12 → M.2W 17:45 → M.TBA-ER 17:45 → M.2W 19:35
PROVIDERS: Emergency Medicine; Family Medicine; Internal Medicine; Internal Medicine Pulmonary Disease; ADMIT Internal Medicine
PROC: 5A09357 Assistance with Respiratory Ventilation, Less than 24 Consecutive Hours, Continuous Positive Airway Pressure (ICD-10-PCS; principal; 2019-03-23)
PROC: 5A09357 Assistance with Respiratory Ventilation, Less than 24 Consecutive Hours, Continuous Positive Airway Pressure (ICD-10-PCS; 2019-03-24)
PROC: 5A09357 Assistance with Respiratory Ventilation, Less than 24 Consecutive Hours, Continuous Positive Airway Pressure (ICD-10-PCS; 2019-03-28)
PROC: 5A09357 Assistance with Respiratory Ventilation, Less than 24 Consecutive Hours, Continuous Positive Airway Pressure (ICD-10-PCS; 2019-03-29)
DX: J15.6 Pneumonia due to other Gram-negative bacteria (principal); E11.00 Type 2 diabetes mellitus with hyperosmolarity without nonketotic hyperglycemic-hyperosmolar coma (NKHHC); J96.21 Acute and chronic respiratory failure with hypoxia; J96.22 Acute and chronic respiratory failure with hypercapnia; I50.33 Acute on chronic diastolic (congestive) heart failure; E66.2 Morbid (severe) obesity with alveolar hypoventilation; Z68.41 Body mass index [BMI] 40.0-44.9, adult; E11.65 Type 2 diabetes mellitus with hyperglycemia; J44.9 Chronic obstructive pulmonary disease, unspecified; E83.42 Hypomagnesemia; E87.6 Hypokalemia; N40.1 Benign prostatic hyperplasia with lower urinary tract symptoms; R33.8 Other retention of urine; I27.20 Pulmonary hypertension, unspecified; N18.3 Chronic kidney disease, stage 3 (moderate); Z90.49 Acquired absence of other specified parts of digestive tract; Z90.79 Acquired absence of other genital organ(s); Z91.14 Patient's other noncompliance with medication regimen; Z87.442 Personal history of urinary calculi; Z79.84 Long term (current) use of oral hypoglycemic drugs; Z79.82 Long term (current) use of aspirin; Z79.899 Other long term (current) drug therapy; Z83.3 Family history of diabetes mellitus

== ENCOUNTER → 2019-04-05 | Outpatient (CLI) | payer OTHER | LOC: M.WC 08:00 | DX: E11.621 Type 2 diabetes mellitus with foot ulcer (principal); L97.511 Non-pressure chronic ulcer of other part of right foot limited to breakdown of skin; L03.115 Cellulitis of right lower limb; I87.2 Venous insufficiency (chronic) (peripheral); I50.9 Heart failure, unspecified; I89.0 Lymphedema, not elsewhere classified; G47.30 Sleep apnea, unspecified; G30.9 Alzheimer's disease, unspecified; F02.80 Dementia in other diseases classified elsewhere, unspecified severity, without behavioral disturbance, psychotic disturbance, mood disturbance, and anxiety ==

== ENCOUNTER 2019-04-13 10:31 | Inpatient (IN) | payer OTHER ==
[~2019-04-13] VITALS: Ht 175.3 cm; Wt 120.0 kg
[2019-04-13 11:30] VITALS: BP 150/61
[2019-04-13 13:01] LABS: ABSOLUTE BASOPHILS 0.1 thou/uL (0.0-0.2); ABSOLUTE EOSINOPHILS 0.1 thou/uL (0.0-0.7); ABSOLUTE LYMPHOCYTES 0.8 thou/uL (0.8-5.3); ABSOLUTE MONOCYTES 0.6 thou/uL (0.0-1.2); ABSOLUTE NEUTROPHILS 7.6 thou/uL (1.6-8.1); BASOPHILS 0.6 %; EOSINOPHILS 0.6 %; HEMATOCRIT 27.7 % (42.0-52.0); HEMOGLOBIN 9.3 gm/dL (14.0-18.0); LYMPHOCYTES 8.6 %; MCH 28.7 pg (26.0-34.0); MCHC 33.5 g/dL (28.0-37.0); MCV 85.5 fL (80.0-100.0); MONOCYTES 6.1 %; MPV 9.2 fl. (7.2-11.1); NUCLEATED RBCS 0 /100WBC; PLATELET COUNT* 312 thou/uL (150-400); POLYS 84.1 %; RBC 3.23 mil/uL (4.50-6.00); RDW-CV 15.2 % (10.5-14.5)
[2019-04-13 13:09] LABS: CALCIUM 8.7 mg/dL (8.5-10.1); CREATININE 1.8 mg/dL (0.6-1.3); POTASSIUM 4.2 mmol/L (3.5-5.1)
[2019-04-13 13:13] LABS: ALBUMIN 2.4 g/dL (3.4-5.0); TOTAL BILIRUBIN 0.5 mg/dL (<0.1-1.0); TOTAL PROTEIN 7.4 g/dL (6.4-8.2)
[2019-04-13 16:19] VITALS: BP 150/75
[2019-04-13 20:00] VITALS: BP 133/63
[2019-04-14] VITALS: BP 129/64
[2019-04-14 03:38] VITALS: BP 132/61
[2019-04-14 05:27] LABS: ABSOLUTE EOSINOPHILS 0.1 thou/uL (0.0-0.7); ABSOLUTE LYMPHOCYTES 0.8 thou/uL (0.8-5.3); ABSOLUTE MONOCYTES 0.6 thou/uL (0.0-1.2); ABSOLUTE NEUTROPHILS 5.4 thou/uL (1.6-8.1); BASOPHILS 0.7 %; EOSINOPHILS 1.5 %; HEMOGLOBIN 8.2 gm/dL (14.0-18.0); LYMPHOCYTES 11.5 %; MCH 29.1 pg (26.0-34.0); MCV 85.6 fL (80.0-100.0); MONOCYTES 8.5 %; MPV 8.6 fl. (7.2-11.1); NUCLEATED RBCS 0 /100WBC; PLATELET COUNT* 266 thou/uL (150-400); POLYS 77.8 %; RDW-CV 15.4 % (10.5-14.5)
[2019-04-14 05:43] LABS: CALCIUM 7.8 mg/dL (8.5-10.1); CREATININE 1.7 mg/dL (0.6-1.3); POTASSIUM 4.4 mmol/L (3.5-5.1)
[2019-04-14 08:00] VITALS: BP 132/67
[2019-04-14 10:46] VITALS: BP 132/67
[2019-04-14 11:00] VITALS: BP 99/63
--- NOTE | 2019-04-14 11:48 | CON ---
[address] [address] CONSULTATION Name: KRIAG HERNANDEZ Room: [address] IN [facility]#: [id number] Admission: 04/13/19 Attend Phys: Janes Moyer MD Discharge: Date of : 41 Report #: [id number] THIS REPORT FOR: //name// CC: Janes Chaves [facility] DATE OF SERVICE: 04/13/2019 INFECTIOUS DISEASE CONSULTATION ATTENDING PHYSICIAN: Janes Moyer MD REASON FOR EVALUATION: Right foot necrotizing wound/infection. HISTORY OF PRESENT ILLNESS: Chart reviewed, patient examined. This is a 73-year-old gentleman with extensive medical history including diabetes mellitus who has been hospitalized recently in the last couple of weeks for times of the course of the last month, has ongoing issues with chronic respiratory failure, COPD, obstructive sleep apnea with Trelegy dependent, who was actually discharged from the hospital, was evaluated in the wound care center today, was found to have right foot necrotizing infection. Due to the urgent nature, he was admitted directly for surgery evaluation and for possible OR debridement. At this point, he has moderate pain and discomfort. He has had significant fevers. His blood sugars have been very markedly elevated, perhaps mildly encephalopathic, borderline and a dyspneic. ALLERGIES: None known. MEDICATIONS: Include glimepiride, aspirin, donepezil, furosemide, amlodipine, gabapentin, tamsulosin and finasteride. PAST MEDICAL HISTORY: Includes COPD, obstructive sleep apnea, history of cardiomyopathy with congestive heart failure, obesity hypoventilation syndrome, chronic atrial tachydysrhythmia, renal insufficiency, diabetes mellitus type 2 and renal lithiasis. SOCIAL HISTORY: Nonsmoker, no ethanol, no illicit drug use. FAMILY HISTORY: Noncontributory. REVIEW OF SYSTEMS: As above, otherwise unremarkable 10-point review of systems except noted in history of present illness. PHYSICAL EXAMINATION: GENERAL: He is pleasant, cooperative, mild dyspnea, undernourished. VITAL SIGNS: [place] [address] CONSULTATION Name: KRAIG HERNANDEZ Merlene Room: [address]#: [id number] Admission: 04/13/19 Attend Phys: Janes Moyer MD Discharge: Date of : 41 Report #: [id number] HEENT: Normocephalic. Extraocular muscles intact. NECK: Supple. LUNGS: Scattered coarse breath sounds, diminished overall. HEART: Regular with ectopy. I do not appreciate a murmur. ABDOMEN: Obese, somewhat firm, nontender. There are no peritoneal signs. As a multilayer dressing over the right foot, did review the photographs taken earlier today at the Wound Care Center. GENITOURINARY AND RECTAL: Deferred. LABORATORY DATA: Pending. ASSESSMENT: Necrotizing foot infection in patient that his diabetes is not well controlled. His blood sugars are markedly elevated. He describes in the 400-500. We will continue wound care, pending surgical evaluation and will need aggressive approach. We will start empiric therapy with antimicrobials. He is not aware of any particular drug allergies. We will monitor expectantly certainly at risk for other types of complications including infectious while here. <ELECTRONICALLY SIGNED> By: Sánchez Leach MD 04/14/19 1148 1212 [id number] Leach MD /nt
[2019-04-14 20:25] VITALS: BP 154/62
[2019-04-15] VITALS: BP 112/54
[2019-04-15 04:00] VITALS: BP 107/60
[2019-04-15 04:47] LABS: ABSOLUTE BASOPHILS 0.1 thou/uL (0.0-0.2); ABSOLUTE EOSINOPHILS 0.1 thou/uL (0.0-0.7); ABSOLUTE LYMPHOCYTES 1.2 thou/uL (0.8-5.3); ABSOLUTE MONOCYTES 0.5 thou/uL (0.0-1.2); ABSOLUTE NEUTROPHILS 4.9 thou/uL (1.6-8.1); BASOPHILS 0.9 %; EOSINOPHILS 1.9 %; HEMATOCRIT 21.3 % (42.0-52.0); HEMOGLOBIN 7.2 gm/dL (14.0-18.0); LYMPHOCYTES 17.7 %; MCH 29.1 pg (26.0-34.0); MCHC 33.8 g/dL (28.0-37.0); MCV 86.3 fL (80.0-100.0); MONOCYTES 6.9 %; MPV 8.7 fl. (7.2-11.1); NUCLEATED RBCS 0 /100WBC; PLATELET COUNT* 253 thou/uL (150-400); POLYS 72.6 %; RBC 2.47 mil/uL (4.50-6.00); RDW-CV 15.5 % (10.5-14.5); WBC 6.8 thou/uL (4.0-11.0)
[2019-04-15 04:59] LABS: CALCIUM 7.9 mg/dL (8.5-10.1); CREATININE 1.6 mg/dL (0.6-1.3); POTASSIUM 4.2 mmol/L (3.5-5.1)
[2019-04-15 06:15] LABS: ESR (SEDRATE) 100 mm/hr (0-20)
[2019-04-15 08:34] VITALS: BP 114/60
[2019-04-15 11:43] VITALS: BP 108/51
[2019-04-15 17:19] VITALS: BP 123/64
[2019-04-15 19:25] VITALS: BP 128/58
[2019-04-16 00:18] VITALS: BP 125/65
[2019-04-16 04:51] VITALS: BP 129/71
[2019-04-16 08:00] VITALS: BP 126/62
[2019-04-16 12:10] VITALS: BP 142/67
[2019-04-16 16:00] VITALS: BP 136/61
--- NOTE | 2019-04-16 17:06 | PATH ---
[address] [address] PATHOLOGY RPT PROCEDURE Name: MARYISAIAS Room: [address] IN [facility]#: [id number] Admission: 04/13/19 Date of : 41 Discharge: Report #: [id number] Path Case #: [id number] LCA Accession Number: [id number] . 01 Material submitted: . foot - RIGHT FOOT SOFT TISSUE. Modifiers: right . 01 Clinical history: . Right diabetic foot wound . 02 Diagnosis: Right foot soft tissue: - Benign skin and subcutaneous fat with nonspecific ulceration, necrosis, acute inflammation and fibrosis. . (LOUIE:mml; 04/16/2019) [facility] 04/16/2019 1245 Local . 02 Electronically signed: . Steve Johnston MD, Pathologist NPI- [id number] . 01 Gross description: . The specimen is received in formalin, labeled "Isaias Li, right foot soft tissue" and consists of 2 necrotic segments of chance brown tissue with possible skin measuring 6.0 x 4.0 x 1.8 cm. Truck Farmer sections are submitted in A1. (SDY; 04/15/2019) SYU/SYU 04/15/2019 1231 Local . 02 Pathologist provided ICD-10: I96, L98.499, L08.9 . 02 CPT . 298280 Specimen Comment: A courtesy copy of this report has been sent to Specimen Comment: [phone], , . Specimen Comment: Report sent to ,DR GOLDMAN / DR MARKS Performed at: [address], [place] [id number] MD Andreas Sena MD Phone: [phone] Performed at: 02 [facility] [address], [place], [place] [id number] MD Steve Johnston MD Phone: [phone]
[2019-04-16 19:30] VITALS: BP 140/74
[2019-04-17 00:18] VITALS: BP 140/69
[2019-04-17 04:00] VITALS: BP 148/73
[2019-04-17 08:00] VITALS: BP 132/67
[2019-04-17 12:47] VITALS: BP 125/53
[2019-04-17 20:00] VITALS: BP 116/53
[2019-04-18] VITALS: BP 125/64
[2019-04-18 04:00] VITALS: BP 132/62
[2019-04-18 07:44] LABS: ABSOLUTE BASOPHILS 0.1 thou/uL (0.0-0.2); ABSOLUTE EOSINOPHILS 0.3 thou/uL (0.0-0.7); ABSOLUTE LYMPHOCYTES 1.6 thou/uL (0.8-5.3); ABSOLUTE MONOCYTES 0.5 thou/uL (0.0-1.2); ABSOLUTE NEUTROPHILS 5.5 thou/uL (1.6-8.1); BASOPHILS 0.6 %; EOSINOPHILS 3.3 %; HEMATOCRIT 24.5 % (42.0-52.0); HEMOGLOBIN 8.3 gm/dL (14.0-18.0); LYMPHOCYTES 19.9 %; MCH 29.3 pg (26.0-34.0); MCV 86.2 fL (80.0-100.0); MONOCYTES 6.4 %; MPV 8.7 fl. (7.2-11.1); NUCLEATED RBCS 0 /100WBC; PLATELET COUNT* 262 thou/uL (150-400); POLYS 69.8 %; RBC 2.84 mil/uL (4.50-6.00); RDW-CV 15.4 % (10.5-14.5)
[2019-04-18 07:50] LABS: CALCIUM 8.1 mg/dL (8.5-10.1); CREATININE 1.6 mg/dL (0.6-1.3); POTASSIUM 3.5 mmol/L (3.5-5.1)
[2019-04-18 08:00] VITALS: BP 102/54
[2019-04-18 14:47] VITALS: BP 121/67
[2019-04-18 16:00] VITALS: BP 111/63
[2019-04-18 20:00] VITALS: BP 115/58
[2019-04-19] VITALS (7 sets, daily range): BP systolic 114–140; BP diastolic 56–79
[2019-04-19] MEDS ORDERED: CLONAZEPAM 0.50.5 M1 PO (01:44)
[2019-04-19 05:33] LABS: CALCIUM 7.5 mg/dL (8.5-10.1); CREATININE 1.6 mg/dL (0.6-1.3)
[2019-04-20 04:00] VITALS: BP 114/54
[2019-04-20 08:00] VITALS: BP 114/54
[2019-04-20 11:41] VITALS: BP 132/57
[2019-04-20] MEDS ORDERED: NEURONTIN 300300 M1 PO (14:26)
[2019-04-20] MEDS ORDERED: LIPITOR 20 MG T20 M1 PO (14:26)
[2019-04-20] MEDS ORDERED: NEXIUM40 MG PO (14:26)
[2019-04-20] MEDS ORDERED: HUMALOG100 UNIT/1 SUBQ (14:26)
[2019-04-20] MEDS ORDERED: ZOSYN 3.3753.375 GM IV (14:27)
[2019-04-20] MEDS ORDERED: PROBIOTIC1 EAC1 PO (14:28)
[2019-04-20 17:07] VITALS: BP 119/63
[2019-04-20 20:00] VITALS: BP 123/68
[2019-04-21] VITALS: BP 116/64
[2019-04-21 04:00] VITALS: BP 112/51
[2019-04-21 05:00] LABS: CALCIUM 8.4 mg/dL (8.5-10.1); CREATININE 1.6 mg/dL (0.6-1.3); POTASSIUM 3.5 mmol/L (3.5-5.1)
[2019-04-21 08:00] VITALS: BP 131/60
[2019-04-21 09:15] VITALS: BP 131/60
--- NOTE | 2019-04-23 07:15 | OP ---
[address] [address] OPERATIVE REPORT Name: KRAIG HERNANDEZ Room: [address]#: [id number] Admission: 04/13/19 Attend Phys: Janes Moyer MD Discharge: 04/21/19 Date of : 41 Report #: [id number] THIS REPORT FOR: //name// CC: Janes Downing DATE OF SERVICE: 04/14/2019 SURGEON: Alexx Boston DPM PREOPERATIVE DIAGNOSIS: Ulceration with deep tissue infection, right dorsal foot. POSTOPERATIVE DIAGNOSIS: Ulceration with deep tissue infection, right dorsal foot. PROCEDURES: 1. Debridement wound to right dorsal foot to include excision of superficial and deep fascia muscle tendon and all tissue overlying the dorsal metatarsals. 2. Incision and drainage, right foot. ANESTHESIA: General LMA. INJECTABLES: 30 mL of a 1:1 mixture of 0.5% Marcaine plain and 1% lidocaine plain. ESTIMATED BLOOD LOSS: Roughly 300 mL. SPECIMENS: Soft tissue, right dorsal foot. CULTURES: Soft tissue, right dorsal foot, aerobic and anaerobic. COMPLICATIONS: None. DESCRIPTION OF PROCEDURE: The patient was brought to the OR and placed on the table supine with induction of general LMA anesthesia. A local anesthetic block was given to the right anterior ankle. The extremity was prepped and draped aseptically. A #10 blade was used to excise all the tissue from the open wound bed. There is no viable tissue, was all necrotic and grossly infected. I removed the tendinous and fibronecrotic tissue down to the dorsal metatarsals. I circumscribed the distal wound margins with a fresh blade to create the fresh wound margin with viable bleeding edges. Electrocautery was used for hemostasis. The wound was flushed with sterile saline and packed with Gelf[place], [place] [address] OPERATIVE REPORT Name: KRAIG HERNANDEZ Room: [address]#: [id number] Admission: 04/13/19 Attend Phys: Janes Moyer MD Discharge: 04/21/19 Date of : 41 Report #: [id number] Surgicel, Aquacel Ag and covered with ABDs, Kerlix and Carson bandages. The patient left the OR with no pain or complications noted. <ELECTRONICALLY SIGNED> By: Alexx Boston DPM 04/23/19 0715 1653 1950Alexx Boston DPM /ozzy
--- NOTE | 2019-04-23 07:15 | CON ---
[address] [address] CONSULTATION Name: KRAIG HERNANDEZ Room: [address]#: [id number] Admission: 04/13/19 Attend Phys: Janes Moyer MD Discharge: 04/21/19 Date of : 41 Report #: [id number] THIS REPORT FOR: //name// CC: Janes Downing PODIATRY CONSULT ADMISSION DIAGNOSIS: Deep tissue infection with ulceration, right dorsal foot. HISTORY OF PRESENT ILLNESS: A 73-year-old male admitted from the wound care center for a worsening, nonhealing wound to the right dorsal foot of unknown etiology. The patient states the wound has been present for a couple of weeks. He denies trauma or change in shoes or activity. He typically wears extra depth diabetic shoes. He was previously admitted at [facility] and cultured Serratia infection. He is currently afebrile, feels well and has good appetite. He is on parenteral vancomycin and Zosyn. Blood cultures pending x 2. He had extensive tissue debridement today in the wound care center, but he denies any prior debridement while at [facility] or elsewhere. X-ray negative for mari osteolysis or bone destruction. PAST MEDICAL HISTORY: Acute and chronic respiratory failure, diastolic congestive heart failure, acute on chronic, hyperglycemia, lymphedema, obesity, obesity hypoventilation syndrome, generalized debilitation. ALLERGIES: No known drug allergies. MEDICATIONS: Reviewed. PHYSICAL EXAMINATION: Large necrotic wound to the dorsal aspect of the right foot down a penetrating through the deep muscle layer overlying the distal metatarsals. The wound has extensive yellow brown spongy fibronecrotic tissue with no healthy granulation. The area is very edematous, fluctuant with no expressible drainage. I cannot directly visualize bone since there is fibronecrotic slough, necrotic tissue covering. The wound encompasses almost the entire width of the foot from the second through fifth metatarsals. He has severe lower extremity lymphedema, I am unable to palpate pedal pulses. There is no pallor or cyanosis. His feet are warm with inflammation surrounding the right dorsal foot wound. He can flex and extend the right foot. The wound beds nonpainful to palpation, although he has advanced diabetic peripheral sensory neuropathy. IMPRESSION: Necrotic ulceration to right dorsal foot, type 2 diabetes mellitus, lymphedema, peripheral sensory neuropathy, congestive heart failure. PLAN: I performed an excisional ulcer debridement [place] [address] CONSULTATION Name: KRAIG HERNANDEZ Merlene Room: [address]#: [id number] Admission: 04/13/19 Attend Phys: Janes Moyer MD Discharge: 04/21/19 Date of : 41 Report #: [id number] excise subcutaneous tissue, which was sent for aerobic and anaerobic cultures. The wound was cleansed and dressed with Vaseline gauze, ABD and Kerlix. I discussed the case with Dr. Angel Mitchell, his wound care physician, and I plan on taking the patient to the operating room tomorrow for an extensive tissue debridement and further wound cultures. Vascular consultation is pending. We will obtain baseline MRI after surgery. I explained to the patient this is a very limb threatening infection, I cannot rule out the possibility that he has acute osteomyelitis, which is not showing bone destruction on the current foot radiographs. He understands this, and he was instructed to remain completely nonweightbearing to the right foot and keep it elevated. <ELECTRONICALLY SIGNED> By: Alexx Boston DPM 04/23/19 0715 1817 0103Dnicole Boston DPM /nt
--- NOTE | 2019-04-23 07:15 | CON ---
[address] [address] CONSULTATION Name: KRAIG HERNANDEZ Room: [address] IN .#: [id number] Admission: 04/13/19 Attend Phys: Janes Moyer MD Discharge: 04/21/19 Date of : 41 Report #: [id number] THIS REPORT FOR: //name// CC: Janes Downing DATE OF SERVICE: 04/16/2019 CHIEF COMPLAINT: Postoperative day #2 for incision and drainage, right dorsal foot wound with type 2 diabetes mellitus and lymphedema. Surgical tissue cultures are pending with a negative Gram stain. He is on parenteral vancomycin and Zosyn with good tolerance. He is scheduled for CT angiogram today, but was canceled due to elevated creatinine. He feels well, good appetite, been afebrile and denies pain to the extremity. LABORATORY DATA: WBC 6.8, RBC 2.47, hemoglobin 7.2, hematocrit 21.3, platelets 253. BUN 24, creatinine 1.6, glucose 162. PHYSICAL EXAMINATION: Temperature 98.2, pulse 97, respirations 17, blood pressure 136/61. The wound is stable, the wound has no active bleeding. There is some fibronecrotic slough to the wound bed. Lower extremity inflammation is substantially decreased with low-grade cellulitis. No fluctuance or crepitation to the periwound region. No signs of acute vascular embarrassment. IMPRESSION: Status post I and D, right dorsal foot wound, pending cultures. PLAN: I debrided the wound with scissors and forceps to remove subcutaneous tissue and slough. The wound was cleansed and dressed with petroleum, Adaptic, 4 x 4s, ABDs, Kerlix, and Carson bandage. The patient to remain nonweightbearing tonight. We will order physical therapy for tomorrow and allow partial weightbearing to the right heel in a surgical shoe for transfers with assistance with Physical Therapy present. <ELECTRONICALLY SIGNED> By: Alexx Boston DPM 04/23/19 0715 1928 [id number] Boston DPM /nt
--- NOTE | 2019-04-23 07:15 | CON ---
[address] [address] CONSULTATION Name: KRAIG HERNANDEZ Room: [address]#: [id number] Admission: 04/13/19 Attend Phys: Janes Moyer MD Discharge: 04/21/19 Date of : 41 Report #: [id number] THIS REPORT FOR: //name// CC: Janes Downing DATE OF SERVICE: 04/17/2019 CHIEF COMPLAINT: Postoperative incision and drainage, right dorsal foot wound with deep tissue infection, type 2 diabetes mellitus with lymphedema. HISTORY OF PRESENT ILLNESS: He is doing well, decreased appetite, afebrile with no constitutional symptoms. Tissue cultures are pending with no growth thus far. No new labs for review. He relates low-grade pain to the area. He has had physical therapy for and working on transfers using a walker. He remains on parenteral vancomycin and Zosyn. PHYSICAL EXAMINATION: Foot wound slightly improved with increased granulation and less fibronecrotic slough, inflammation and edema to the foot and lower leg are decreased with resolving cellulitis. No signs of acute vascular embarrassment. No visible bone in the wound bed. IMPRESSION: Deep tissue infection with postoperative wound to right dorsal foot. PLAN: Excisional ulcer debridement with scissors and forceps to remove subcutaneous tissue from the wound bed. Bleeding was stopped with pressure. The wound was cleansed, dried and packed with Vaseline gauze and covered with 4 x 4s, ABDs, Kerlix, and Carson. Maximize glycemic control and nutrition. Remain nonweightbearing except for transfers per physical therapy. I discussed the benefits of hyperbaric oxygen, and I will discussed with Dr. Angel Mitchell regarding evaluation on an outpatient basis. <ELECTRONICALLY SIGNED> By: Alexx Boston DPM 04/23/19 0715 1521 1613Dnicole Boston DPM /nt
--- NOTE | 2019-04-23 07:15 | CON ---
[address] [address] CONSULTATION Name: KRAIG HERNANDEZ Room: [address] IN ..#: [id number] Admission: 04/13/19 Attend Phys: Janes Moyer MD Discharge: 04/21/19 Date of : 41 Report #: [id number] THIS REPORT FOR: //name// CC: Janes Downing DATE OF SERVICE: 04/20/2019 CHIEF COMPLAINT: Status post incision and drainage, right dorsal foot with deep tissue infection. Surgical cultures have no growth after 72 hours. He is on parenteral Zosyn with good tolerance. He is scheduled for discharge tomorrow to [facility]. He relates mild intermittent pain to the right foot. He is nonweightbearing except for some weight for transfers only. He feels well. Appetite has been decreased. No new labs for review. PHYSICAL EXAMINATION: Decreased inflammation to the right dorsal foot sal-wound region. The wound bed has increased granulation to the central aspect with less yellow fibronecrotic slough. Slight necrosis of the proximal wound margin, same as after surgery. No fluctuance, crepitation, or signs of abscess. No signs of acute vascular embarrassment. Advanced lipodermatosclerosis with venous insufficiency. IMPRESSION: Ulceration, right dorsal foot with resolving deep tissue infection and cellulitis. PLAN: I reviewed the CTA which showed 3-vessel runoff to the right lower extremity with no signs of focal stenosis. The patient to remain nonambulatory to the extremity and elevate leg. Daily wound care to consist of Aquacel Ag to the wound bed, covered with ABDs, Kerlix, and Carson bandage. I will follow up with him next week at [facility] with Dr. Leach. <ELECTRONICALLY SIGNED> By: Alexx Boston DPM 04/23/19 0715 1817 [id number] Boston DPM /nt
--- NOTE | 2019-04-23 07:15 | CON ---
[address] [address] CONSULTATION Name: KRAIG HERNANDEZ Room: [address] IN .#: [id number] Admission: 04/13/19 Attend Phys: Janes Moyer MD Discharge: 04/21/19 Date of : 41 Report #: [id number] THIS REPORT FOR: //name// CC: Janes Downing DATE OF SERVICE: 04/18/2019 CHIEF COMPLAINT: Status post I and D, right dorsal foot wound with diabetes mellitus. He is on parenteral vancomycin and Zosyn, surgical cultures pending. He is sitting in a reclining chair comfortably with no foot pain. No difficulty breathing or distress. He has good appetite. LABORATORY DATA: WBC was 8.0, RBC 2.84, hemoglobin 8.3, hematocrit 24.5, and platelets 262. BUN 15, creatinine 1.6, and glucose 79. PHYSICAL EXAMINATION: The wound has a fibronecrotic base with some granulation buds. Inflammation substantially decreased since surgery with no mari cellulitis. No pallor, cyanosis, or signs of acute vascular embarrassment to the foot. No visible bone. No fluctuance or crepitation. Overall, the infection is overall clinically improved. IMPRESSION: Deep tissue infection, right dorsal foot, status post surgical debridement. PLAN: The wound was debrided with scissors and forceps to remove fibronecrotic tissue from the wound bed. Scant bleeding was achieved and stopped with pressure. The wound was cleansed and dressed with Xeroform, 4 x 4s, ABD, Kerlix, and Carson bandage. The patient to remain nonweightbearing to the extremity except for partial weightbearing in a surgical shoe for transfers. Planned discharge to nursing home facility next week. He will follow up at [facility] next Friday afternoon. <ELECTRONICALLY SIGNED> By: Alexx Boston DPM 04/23/19 0715 1000 [id number] Boston DPM /ozzy
== END 2019-04-21 12:45 | DRG 982 ==
LOC: M.2W 10:31
PROVIDERS: Family Medicine; Podiatrist Foot & Ankle Surgery; ADMIT Internal Medicine
PROC: 0LBV0ZZ Excision of Right Foot Tendon, Open Approach (ICD-10-PCS; principal; 2019-04-14)
PROC: 05HY33Z Insertion of Infusion Device into Upper Vein, Percutaneous Approach (ICD-10-PCS; 2019-04-15)
DX: E11.621 Type 2 diabetes mellitus with foot ulcer (principal); L03.115 Cellulitis of right lower limb; I42.9 Cardiomyopathy, unspecified; E66.2 Morbid (severe) obesity with alveolar hypoventilation; I50.32 Chronic diastolic (congestive) heart failure; I13.0 Hypertensive heart and chronic kidney disease with heart failure and stage 1 through stage 4 chronic kidney disease, or unspecified chronic kidney disease; J96.11 Chronic respiratory failure with hypoxia; J96.12 Chronic respiratory failure with hypercapnia; E11.51 Type 2 diabetes mellitus with diabetic peripheral angiopathy without gangrene; N17.9 Acute kidney failure, unspecified; E11.628 Type 2 diabetes mellitus with other skin complications; J44.9 Chronic obstructive pulmonary disease, unspecified; E11.65 Type 2 diabetes mellitus with hyperglycemia; L97.519 Non-pressure chronic ulcer of other part of right foot with unspecified severity; E11.42 Type 2 diabetes mellitus with diabetic polyneuropathy; I89.0 Lymphedema, not elsewhere classified; N18.3 Chronic kidney disease, stage 3 (moderate); E11.22 Type 2 diabetes mellitus with diabetic chronic kidney disease; I48.91 Unspecified atrial fibrillation; R33.9 Retention of urine, unspecified; E88.09 Other disorders of plasma-protein metabolism, not elsewhere classified; E11.649 Type 2 diabetes mellitus with hypoglycemia without coma; Z79.899 Other long term (current) drug therapy; Z79.82 Long term (current) use of aspirin; Z68.39 Body mass index [BMI] 39.0-39.9, adult; Z90.49 Acquired absence of other specified parts of digestive tract; Z87.442 Personal history of urinary calculi; Z99.81 Dependence on supplemental oxygen; Z90.89 Acquired absence of other organs; Z83.3 Family history of diabetes mellitus

== ENCOUNTER → 2019-04-13 | Outpatient (CLI) | payer OTHER | LOC: M.WC 05:16 | DX: E11.621 Type 2 diabetes mellitus with foot ulcer (principal); L97.512 Non-pressure chronic ulcer of other part of right foot with fat layer exposed; I87.2 Venous insufficiency (chronic) (peripheral); L03.116 Cellulitis of left lower limb; I50.9 Heart failure, unspecified; I89.0 Lymphedema, not elsewhere classified; G47.30 Sleep apnea, unspecified; Z90.49 Acquired absence of other specified parts of digestive tract ==

== ENCOUNTER → 2019-04-28 | Outpatient (CLI) | payer OTHER ==
[~2019-04-28] MED LIST changes: +HUMALOG100 UNIT/1 SUBQ; +LIPITOR 20 MG T20 M1 PO; +NEXIUM40 MG PO; +PROBIOTIC1 EAC1 PO; +ZOSYN 3.3753.375 GM IV
--- NOTE | 2019-04-29 12:47 | CON ---
[address] [address] CONSULTATION Name: KRAIG HERNANDEZ [id number] Admission: 04/28/19 Attend Phys: Alexx Boston DPM Discharge: Date of : 41 Report #: [id number] THIS REPORT FOR: //name// CC: Alexx Downing DATE OF SERVICE: 04/28/2019 INFECTIOUS DISEASE CONSULTATION AND FOLLOWUP ATTENDING PHYSICIAN: Alexx Mason DPM REASON FOR EVALUATION: Here for evaluation and treatment, dorsal right foot wound complicated by deep infection. HISTORY OF PRESENT ILLNESS: Chart reviewed, patient examined. The patient returns today in followup. He had been hospitalized, at that point, underwent operative debridement on the dorsal aspect of his foot. He is in for the large defect, continues to show areas of skin necrosis throughout the margins, especially across the lateral aspect. He denies significant amount of pain and discomfort. He has not been systemically ill. Denies any fevers or chills. Reviewed the operative cultures, which again confirmed no growth thus far. He has been discharged on piperacillin and tazobactam. He has been on that continuously since his discharge roughly a week ago. ASSESSMENT AND PLAN: Deep foot infection. I think this is likely microvascular disease as well as a complicating factor due to the ongoing tissue, particular skin infarct. Vascular Surgery has been following. At this point, they have felt the wound would heal without intervention. It is not entirely clear that is the case. We will continue the piperacillin and tazobactam at least additional 1 week. Continue to try and optimize his nutritional status. At this point, offloading should not be a significant issue. <ELECTRONICALLY SIGNED> By: Sánchez Leach MD 04/29/19 1247 0840 [id number] Leach MD /nt
== END ==
LOC: M.WC 04-21 14:30
DX: E10.621 Type 1 diabetes mellitus with foot ulcer (principal); L97.512 Non-pressure chronic ulcer of other part of right foot with fat layer exposed; L03.115 Cellulitis of right lower limb; I89.0 Lymphedema, not elsewhere classified; E10.51 Type 1 diabetes mellitus with diabetic peripheral angiopathy without gangrene; E66.01 Morbid (severe) obesity due to excess calories; G47.30 Sleep apnea, unspecified; G30.9 Alzheimer's disease, unspecified; I87.2 Venous insufficiency (chronic) (peripheral); I50.9 Heart failure, unspecified; K21.9 Gastro-esophageal reflux disease without esophagitis; F02.80 Dementia in other diseases classified elsewhere, unspecified severity, without behavioral disturbance, psychotic disturbance, mood disturbance, and anxiety; Z90.49 Acquired absence of other specified parts of digestive tract

== ENCOUNTER → 2019-05-05 | Outpatient (CLI) | payer OTHER ==
--- NOTE | 2019-05-06 12:19 | CON ---
[address] [address] CONSULTATION Name: KRAIG HERNANDEZ Room: [facility]#: [id number] Admission: 05/05/19 Attend Phys: Alexx Boston DPM Discharge: Date of : 41 Report #: [id number] THIS REPORT FOR: //name// CC: Alexx Downing DATE OF SERVICE: 05/05/2019 INFECTIOUS DISEASE CONSULTATION ATTENDING PHYSICIAN: Dr. Alexx Mason. REASON FOR EVALUATION: He is here today for deep infection complicated by necrosis involving dorsal aspect of the right foot. HISTORY OF PRESENT ILLNESS: Chart reviewed, the patient examined. Returns today in followup. Generally, this is typical for him very little way of complaints. He is in facility, which he better not be in. Denies any significant pain or discomfort associated with the site. No fevers or chills. Appetite he states is generally pretty good, the food is somewhat variable. He has been utilizing a packing to the wound. On examination, the wound has improved fairly significantly from last week as much less necrosis there is still moderate degree. There is no particular odor, no purulence. He does have a large defect over the dorsal aspect of the foot at this point. ASSESSMENT AND PLAN: Tissue necrosis on dorsal aspect of the foot. We will continue the empiric therapy with piperacillin/tazobactam and there has been some improvement over the course of the last 7 days. If indeed it continues to clean up and be a candidate for a wound VAC, consider transitioning off IV antibiotics in the next 1-2 weeks. He was encouraged to optimize his oral food intake including excess protein. Monitor for increasing swelling as well. <ELECTRONICALLY SIGNED> By: Sánchez Leach MD 05/06/19 1219 1508 [id number] Leach MD /nt
== END ==
LOC: M.MRI 05:27 → M.RAD 05:27 → M.MRI 13:30
DX: E11.621 Type 2 diabetes mellitus with foot ulcer (principal); L97.512 Non-pressure chronic ulcer of other part of right foot with fat layer exposed; L03.115 Cellulitis of right lower limb; I87.2 Venous insufficiency (chronic) (peripheral); I50.9 Heart failure, unspecified; I89.0 Lymphedema, not elsewhere classified; G47.30 Sleep apnea, unspecified

== ENCOUNTER → 2019-05-19 | Outpatient (CLI) | payer OTHER ==
--- NOTE | 2019-05-20 10:24 | CON ---
[address] [address] CONSULTATION Name: MARYKRAIG L Room: [facility]#: [id number] Admission: 05/19/19 Attend Phys: Alexx Boston DPM Discharge: Date of : 41 Report #: [id number] THIS REPORT FOR: //name// CC: Alexx Downing DATE OF SERVICE: 05/19/2019 INFECTIOUS DISEASE CONSULTATION ATTENDING PHYSICIAN: Alexx Boston DPM. HISTORY OF PRESENT ILLNESS: He is here for a large ulcer involving the dorsal aspect of his right foot. He is post-debridement of extensive necrosis, exposed deep tissue, has been on broad-spectrum antimicrobial therapy with Zosyn for the last 3-4 weeks. He generally does not experience significant pain or discomfort associated with it that I suspect due to neuropathy. Generally, he states he eats satisfactorily. On examination, is seen the wound post-debridement by Dr. Boston. There is increased granulation tissue. There is no particular odor, no purulence. Overall, the wound appears better superficially along the proximal part. There is overall less inflammation. ASSESSMENT AND PLAN: Deep wound associated with the right dorsal foot. We will continue current approach with parenteral antimicrobials at least 1 additional week, perhaps transition to oral. Of note, I did not have any positive cultures related to the most recent surgical debridement, did optimize his nutritional status. Continue wound care as prescribed by Dr. Boston. We will see him in 1 week. <ELECTRONICALLY SIGNED> By: Sánchez Leach MD 05/20/19 1024 0936 [id number] Leach MD /nt
== END ==
LOC: M.WC 04:01
DX: T81.89XD Other complications of procedures, not elsewhere classified, subsequent encounter (principal); E10.621 Type 1 diabetes mellitus with foot ulcer; L97.512 Non-pressure chronic ulcer of other part of right foot with fat layer exposed; L03.115 Cellulitis of right lower limb; I87.2 Venous insufficiency (chronic) (peripheral); I50.9 Heart failure, unspecified; I89.0 Lymphedema, not elsewhere classified; G47.30 Sleep apnea, unspecified; G30.9 Alzheimer's disease, unspecified; K21.9 Gastro-esophageal reflux disease without esophagitis; F02.80 Dementia in other diseases classified elsewhere, unspecified severity, without behavioral disturbance, psychotic disturbance, mood disturbance, and anxiety; Z90.49 Acquired absence of other specified parts of digestive tract; Y83.8 Other surgical procedures as the cause of abnormal reaction of the patient, or of later complication, without mention of misadventure at the time of the procedure

== ENCOUNTER → 2019-05-26 | Outpatient (CLI) | payer OTHER ==
--- NOTE | 2019-05-27 11:53 | CON ---
[address] [address] CONSULTATION Name: ADELEEUSEBIAKRAIG SANDERS Room: [facility]#: [id number] Admission: 05/26/19 Attend Phys: Alexx Boston DPM Discharge: Date of : 41 Report #: [id number] THIS REPORT FOR: //name// CC: Alexx Downing DATE OF SERVICE: 05/26/2019 INFECTIOUS DISEASE CONSULTATION ATTENDING PHYSICIAN: Alexx Boston DPM HISTORY OF PRESENT ILLNESS: The patient returns in followup, ongoing issue of chronic ulceration involving dorsal aspect of his right foot. This was widely debrided on the 04/14. He has been on parenteral therapy since that time. Interestingly, although he had been on antibiotics, cultures were sterile. There was clearly necrotic material, felt likely be polymicrobial growth, completed roughly 6 weeks of piperacillin/tazobactam. Generally, he is somewhat stoic. Denies significant amount of pain or discomfort. PHYSICAL EXAMINATION: On examination, the wound is fairly clean post-debridement, although per staff, the initial appearance had some greenish drainage. On questioning, he denies any systemic illness. Appetite has generally been good. ASSESSMENT AND PLAN: Chronic dorsal foot wound. At this point, we will transition to oral antibiotics utilizing Augmentin. We will maintain the PICC line, however, and see how he does over the course of next week. If he continues to show general improvement, we would consider removing that as well. He was encouraged to optimize his nutritional status. Wound care as per Dr. Boston. <ELECTRONICALLY SIGNED> By: Sánchez Leach MD 05/27/19 1153 0922 0937Sánchez Leach MD /nt
== END ==
LOC: M.WC 05:32
DX: E11.621 Type 2 diabetes mellitus with foot ulcer (principal); L97.512 Non-pressure chronic ulcer of other part of right foot with fat layer exposed; L03.115 Cellulitis of right lower limb; I89.0 Lymphedema, not elsewhere classified; E11.42 Type 2 diabetes mellitus with diabetic polyneuropathy; G47.30 Sleep apnea, unspecified; G30.9 Alzheimer's disease, unspecified; I87.2 Venous insufficiency (chronic) (peripheral); I50.9 Heart failure, unspecified; K21.9 Gastro-esophageal reflux disease without esophagitis; F02.80 Dementia in other diseases classified elsewhere, unspecified severity, without behavioral disturbance, psychotic disturbance, mood disturbance, and anxiety; Z90.49 Acquired absence of other specified parts of digestive tract

== ENCOUNTER → 2019-06-02 | Outpatient (CLI) | payer OTHER ==
--- NOTE | 2019-06-03 13:21 | CON ---
[address] [address] CONSULTATION Name: MARYKRAIG Room: [facility]#: [id number] Admission: 06/02/19 Attend Phys: Alexx Boston DPM Discharge: Date of : 41 Report #: [id number] THIS REPORT FOR: //name// CC: Alexx Downing DATE OF SERVICE: 06/02/2019 INFECTIOUS DISEASE CONSULTATION FOLLOWUP LOCATION: The patient is seen in the outpatient [facility]. ATTENDING PHYSICIAN: Alexx Boston DPM HISTORY OF PRESENT ILLNESS: He has got a large right dorsal foot wound at the site of previous necrotizing skin and soft tissue infection with debridement roughly a month ago. On questioning, he does have fast response. He denies any significant pain or discomfort associated with the site. No systemic illness including fevers or chills. Appetite has generally been good. PHYSICAL EXAMINATION: On examination, the wound does have a moderate degree of yellowish fibrin/slough. Based on that appearance, did undergo debridement by Dr. Boston, who actually removed significant amount of it. ASSESSMENT AND PLAN: Chronic foot ulcer. At this point, he had been off preoperative antibiotics for roughly 5 days without evidence of any relapse. We will go ahead and discontinue the PICC line. He has been on Augmentin. We will extend that additional couple of weeks. It is notable the operative surgery culture was otherwise unremarkable, although he had been on preoperative antibiotics. He was encouraged to optimize his nutritional status. Continue wound care as prescribed by Dr. Boston and offload the site. We will see him in 1 week. <ELECTRONICALLY SIGNED> By: Sánchez Leach MD 06/03/19 1321 1749 [id number] Leach MD /nt
== END ==
LOC: M.WC 03:21
DX: E11.621 Type 2 diabetes mellitus with foot ulcer (principal); L97.512 Non-pressure chronic ulcer of other part of right foot with fat layer exposed; L03.115 Cellulitis of right lower limb; I89.0 Lymphedema, not elsewhere classified; E11.42 Type 2 diabetes mellitus with diabetic polyneuropathy; G47.30 Sleep apnea, unspecified; G30.9 Alzheimer's disease, unspecified; I87.2 Venous insufficiency (chronic) (peripheral); I50.9 Heart failure, unspecified; K21.9 Gastro-esophageal reflux disease without esophagitis; F02.80 Dementia in other diseases classified elsewhere, unspecified severity, without behavioral disturbance, psychotic disturbance, mood disturbance, and anxiety; Z90.49 Acquired absence of other specified parts of digestive tract

== ENCOUNTER → 2019-06-09 | Outpatient (CLI) | payer OTHER ==
--- NOTE | 2019-06-10 15:20 | CON ---
[address] [address] CONSULTATION Name: KRAIG HERNANDEZ Room: [facility]#: [id number] Admission: 06/09/19 Attend Phys: Alexx Boston DPM Discharge: Date of : 41 Report #: [id number] THIS REPORT FOR: //name// CC: Alexx Downing DATE OF SERVICE: 06/09/2019 INFECTIOUS DISEASE CONSULTATION ATTENDING PHYSICIAN: Alexx Boston DPM. REASON FOR EVALUATION: Deep infection involving the right foot, likely polymicrobial related to some necrosis, also concern about vasculopathy as well, he returns today. On examination, the wound appears to be actually improved. Per staff, there was notable odor as well as greenish drainage from the site. He denies any systemic illness. No fevers or chills. Appetite has generally been good. It is notable he had transition to oral antibiotics. He is currently on Augmentin. PHYSICAL EXAMINATION: As noted above. The wound appears to be showing increased granulation tissue. There is some slough primarily at the margins. There is no exposed hard tissue. It was aggressively debrided, clearly had healthy granulation tissue, where it had not been before. ASSESSMENT AND PLAN: I did ask Dr. Bosotn to take a culture. We will await those results. He does have several days of Augmentin left. He is instructed to continue those, may adjust treatment based on the results of the culture. Continue wound care as prescribed, optimize his nutritional status. He continues to have issues with some excessive edema. They are considering compression, although the vasculopathy makes it somewhat problematic. He is encouraged to elevate his lower extremities. We will see him in 1 week. <ELECTRONICALLY SIGNED> By: Sánchez Leach MD 06/10/19 1520 [id number] Leach MD /nt
== END ==
LOC: M.WC 05:05
DX: E11.621 Type 2 diabetes mellitus with foot ulcer (principal); L97.512 Non-pressure chronic ulcer of other part of right foot with fat layer exposed; L03.115 Cellulitis of right lower limb; I89.0 Lymphedema, not elsewhere classified; I87.2 Venous insufficiency (chronic) (peripheral); I50.9 Heart failure, unspecified; G47.30 Sleep apnea, unspecified; G30.9 Alzheimer's disease, unspecified; F02.80 Dementia in other diseases classified elsewhere, unspecified severity, without behavioral disturbance, psychotic disturbance, mood disturbance, and anxiety; Z90.49 Acquired absence of other specified parts of digestive tract

== ENCOUNTER → 2019-06-16 | Outpatient (CLI) | payer OTHER ==
--- NOTE | 2019-06-17 12:18 | CON ---
[address] [address] CONSULTATION Name: KRAIG HERNANDEZ [id number] Admission: 06/16/19 Attend Phys: Alexx Boston DPM Discharge: Date of : 41 Report #: [id number] THIS REPORT FOR: //name// CC: Alexx Downing DATE OF SERVICE: 06/16/2019 ATTENDING PHYSICIAN: Dr. Alexx Boston. HISTORY OF PRESENT ILLNESS: The patient returns today in followup, extensive ulceration involving dorsal aspect of the right foot site of previous necrotizing process, suspected combination including vasculopathy as well as infection. He has been undergoing localized wound care. He had received initial parenteral therapy. This was transitioned to oral antibiotics, subsequently had a wound recultured and had growth of Pseudomonas identified within the last couple of days. He generally is somewhat stoic. He denies significant discomfort associated with the foot. He has not been systemically ill. On examination, he is seen post-procedure and the wound is clinically much improved. There is very little slough at this point. Granulation tissue is quite firm and not friable. ASSESSMENT AND PLAN: The right dorsal foot extensive wound, I think it is reasonable given the concern about possible secondary infection whether this is true combination is not quite clear. We will initiate therapy with ciprofloxacin based on susceptibility testing. Continue to encourage optimization of his nutritional status. Wound care per Dr. Boston. Continue offloading and edema control with compression. See him back in 1 week. <ELECTRONICALLY SIGNED> By: Sánchez Leach MD 06/17/19 1218 1732 [id number] Leach MD /nt
== END ==
LOC: M.WC 04:59
DX: E11.621 Type 2 diabetes mellitus with foot ulcer (principal); L97.512 Non-pressure chronic ulcer of other part of right foot with fat layer exposed; L03.115 Cellulitis of right lower limb; I89.0 Lymphedema, not elsewhere classified; I50.9 Heart failure, unspecified; I87.2 Venous insufficiency (chronic) (peripheral); G47.30 Sleep apnea, unspecified; G30.9 Alzheimer's disease, unspecified; K21.9 Gastro-esophageal reflux disease without esophagitis; F02.80 Dementia in other diseases classified elsewhere, unspecified severity, without behavioral disturbance, psychotic disturbance, mood disturbance, and anxiety; Z90.49 Acquired absence of other specified parts of digestive tract

== ENCOUNTER → 2019-06-23 | Outpatient (CLI) | payer OTHER ==
--- NOTE | 2019-06-24 06:25 | CON ---
[address] [address] CONSULTATION Name: KRAIG HERNANDEZ Room: [facility] Aysha#: [id number] Admission: 06/23/19 Attend Phys: Alexx Boston DPM Discharge: Date of : 41 Report #: [id number] THIS REPORT FOR: //name// CC: Alexx Downing DATE OF SERVICE: 06/23/2019 INFECTIOUS DISEASE CONSULTATION FOLLOWUP HISTORY OF PRESENT ILLNESS: The patient is here for followup right dorsal foot ulceration from a previous subcutaneous abscess with extensive necrosis. He is post debridement several weeks ago. Generally, he has been doing fairly well. He does have a stoic nature and denies significant pain or discomfort. He has not been systemically ill. Appetite has been good. He had been restarted on antibiotics with ciprofloxacin. It is notable he had isolation Pseudomonas that was in vitro susceptible to quinolones. On evaluation, the wound continues to improve and at one point, there was extensive necrotic tissue, slough, etc. This is virtually gone at this point. He has increased granulation tissue. Some ozso-zx-wtumnbta degree of inflammation noted superficially. There is no particular odor, no purulence. ASSESSMENT AND PLAN: Right dorsal foot wound, site of previous necrotizing infection. Based on recent cultures, I think it is reasonable to continue the ciprofloxacin at least another 1-2 weeks to see how he does clinically. We will follow him on a weekly basis. Again, encouraged to optimize his nutritional status. Wound care per Dr. Boston. <ELECTRONICALLY SIGNED> By: Sánchez Leach MD 06/24/19 0625 39 09Jolouisa Leach MD /nt
== END ==
LOC: M.WC 05:46
DX: E11.621 Type 2 diabetes mellitus with foot ulcer (principal); L97.512 Non-pressure chronic ulcer of other part of right foot with fat layer exposed; L03.115 Cellulitis of right lower limb; I87.2 Venous insufficiency (chronic) (peripheral); I50.9 Heart failure, unspecified; I89.0 Lymphedema, not elsewhere classified; K21.9 Gastro-esophageal reflux disease without esophagitis; G47.30 Sleep apnea, unspecified; G30.9 Alzheimer's disease, unspecified; F02.80 Dementia in other diseases classified elsewhere, unspecified severity, without behavioral disturbance, psychotic disturbance, mood disturbance, and anxiety; Z90.49 Acquired absence of other specified parts of digestive tract

== ENCOUNTER → 2019-06-30 | Outpatient (CLI) | payer OTHER ==
--- NOTE | 2019-07-01 16:47 | CON ---
[address] [address] CONSULTATION Name: KRAIG HERNANDEZ [facility] [id number] Admission: 06/30/19 Attend Phys: Alexx Boston DPM Discharge: Date of : 41 Report #: [id number] THIS REPORT FOR: //name// CC: Alexx Downing DATE OF SERVICE: 06/30/2019 INFECTIOUS DISEASE CONSULT ATTENDING PHYSICIAN: Dr. Alexx Boston. HISTORY OF PRESENT ILLNESS: The patient returns today in followup. Denies any particular specific complaints to his right dorsal foot wound. Generally, he has no pain and it is in part due to his peripheral neuropathy. Also denies any systemic illness. He states his appetite has been good. On evaluation, the wound continues to slowly improve. He certainly has a persistent large defect there, although there is a minimal amount of nonviable tissue. There is increasing granulation. Overall, the dimensions are likely slightly smaller, depth certainly is decreased as well. On questioning the staff, there was no particular drainage or odor. Wound dressing was removed. ASSESSMENT AND PLAN: Right dorsal foot wound. At this point, we would not extend the antibiotics. We will see him in 2 weeks' time. He was instructed to call if he notes any increase in drainage or otherwise any more additional concerns we will likely reinstitute antibiotics to avoid any setbacks. <ELECTRONICALLY SIGNED> By: Sánchez Leach MD 07/01/19 9646 0826 [id number] Leach MD /nt
== END ==
LOC: M.WC 04:02
DX: E11.621 Type 2 diabetes mellitus with foot ulcer (principal); L97.512 Non-pressure chronic ulcer of other part of right foot with fat layer exposed; L03.115 Cellulitis of right lower limb; I87.2 Venous insufficiency (chronic) (peripheral); I89.0 Lymphedema, not elsewhere classified; I50.9 Heart failure, unspecified; G47.30 Sleep apnea, unspecified; G30.9 Alzheimer's disease, unspecified; K21.9 Gastro-esophageal reflux disease without esophagitis; F02.80 Dementia in other diseases classified elsewhere, unspecified severity, without behavioral disturbance, psychotic disturbance, mood disturbance, and anxiety; Z90.49 Acquired absence of other specified parts of digestive tract

== ENCOUNTER → 2019-07-14 | Outpatient (CLI) | payer OTHER ==
--- NOTE | 2019-07-15 12:35 | CON ---
[address] [address] CONSULTATION Name: MARYKRAIG Room: [facility] RonakMeliza.#: [id number] Admission: 07/14/19 Attend Phys: Alexx Boston DPM Discharge: Date of : 41 Report #: [id number] THIS REPORT FOR: //name// CC: Alexx Downing DATE OF SERVICE: 07/14/2019 INFECTIOUS DISEASE CONSULTATION FOLLOWUP ATTENDING PHYSICIAN: Alexx Boston MD The patient returns today in followup for dorsal right foot wound, complication of necrotizing infection, had extended course of antibiotics, although he has been off them for the last couple weeks. He generally has been doing fairly well. Denies any systemic illness. No fevers or chills. Appetite has been good. No localizing signs or symptoms, although he does have a degree of neuropathy. On examination, the wound continues to show diminished or decreased dimensions, in particular the depth has receded. There is virtually 100% granulation tissue at this point. Right dorsal foot wound, at this point has been off antibiotics. We will continue current approach on topical therapy, monitor expectantly in discussion about utilizing a wound VAC or bioengineered grafting. I will see him in 3 weeks. <ELECTRONICALLY SIGNED> By: Sánchez Leach MD 07/15/19 1235 0821 0912Jolouisa Leach MD /ozzy
== END ==
LOC: M.WC 05:21
DX: E11.621 Type 2 diabetes mellitus with foot ulcer (principal); L97.512 Non-pressure chronic ulcer of other part of right foot with fat layer exposed; L03.115 Cellulitis of right lower limb; I89.0 Lymphedema, not elsewhere classified; I87.2 Venous insufficiency (chronic) (peripheral); I50.9 Heart failure, unspecified; G47.30 Sleep apnea, unspecified; G60.9 Hereditary and idiopathic neuropathy, unspecified; F02.80 Dementia in other diseases classified elsewhere, unspecified severity, without behavioral disturbance, psychotic disturbance, mood disturbance, and anxiety; Z90.49 Acquired absence of other specified parts of digestive tract

== ENCOUNTER → 2019-08-04 | Outpatient (CLI) | payer MEDICARE ==
--- NOTE | 2019-08-05 12:18 | CON ---
[address] [address] CONSULTATION Name: MARYKRAIG L Room: [facility]#: [id number] Admission: 08/04/19 Attend Phys: Alexx Boston DPM Discharge: Date of : 41 Report #: [id number] THIS REPORT FOR: //name// CC: Alexx Downing DATE OF SERVICE: 08/04/2019 INFECTIOUS DISEASE CONSULTATION FOLLOWUP ATTENDING PHYSICIAN: Alexx Boston DPM HISTORY OF PRESENT ILLNESS: [facility]. The patient returns today in followup of his longstanding right dorsal foot wound due to necrotizing infection with abscess post-debridement in 05/2019. He has undergone wound care including briefly had a wound VAC. On examination, the wound is dramatically improving. Given the depth, there is fully granulation tissue noted. The overall degree of inflammation is pretty mild. On questioning, he denies any localizing or systemic illness. He did note an odor. There is some intermittent greenish drainage. ASSESSMENT AND PLAN: Chronic right dorsal foot wound. At this point, he has been off antibiotics at least a couple of weeks. We will continue the current approach with topical therapy, wound care. He was encouraged to optimize his nutritional status. He was encouraged to avoid activities that would encourage edema. At this point, we would be available as needed. <ELECTRONICALLY SIGNED> By: Sánchez Leach MD 08/05/19 1218 0837 0923Sánchez Leach MD /ozzy
== END ==
LOC: M.WC 13:34
DX: E10.621 Type 1 diabetes mellitus with foot ulcer (principal); L97.511 Non-pressure chronic ulcer of other part of right foot limited to breakdown of skin; L03.115 Cellulitis of right lower limb; I89.0 Lymphedema, not elsewhere classified; I87.2 Venous insufficiency (chronic) (peripheral); I50.9 Heart failure, unspecified; G47.30 Sleep apnea, unspecified; G30.9 Alzheimer's disease, unspecified; K21.9 Gastro-esophageal reflux disease without esophagitis; F02.80 Dementia in other diseases classified elsewhere, unspecified severity, without behavioral disturbance, psychotic disturbance, mood disturbance, and anxiety; Z90.49 Acquired absence of other specified parts of digestive tract

== ENCOUNTER → 2019-08-18 | Outpatient (CLI) | payer MEDICARE | LOC: M.WC 05:09 | DX: E11.621 Type 2 diabetes mellitus with foot ulcer (principal); L97.512 Non-pressure chronic ulcer of other part of right foot with fat layer exposed; L03.115 Cellulitis of right lower limb; I87.2 Venous insufficiency (chronic) (peripheral); I89.0 Lymphedema, not elsewhere classified; I50.9 Heart failure, unspecified; G47.30 Sleep apnea, unspecified; G30.9 Alzheimer's disease, unspecified; K21.9 Gastro-esophageal reflux disease without esophagitis; F02.80 Dementia in other diseases classified elsewhere, unspecified severity, without behavioral disturbance, psychotic disturbance, mood disturbance, and anxiety; Z90.49 Acquired absence of other specified parts of digestive tract ==

== ENCOUNTER → 2019-09-08 | Outpatient (CLI) | payer MEDICARE | LOC: M.WC 01:35 | DX: E10.621 Type 1 diabetes mellitus with foot ulcer (principal); L97.512 Non-pressure chronic ulcer of other part of right foot with fat layer exposed; L03.115 Cellulitis of right lower limb; I87.2 Venous insufficiency (chronic) (peripheral); I50.9 Heart failure, unspecified; I89.0 Lymphedema, not elsewhere classified; G47.30 Sleep apnea, unspecified; G30.9 Alzheimer's disease, unspecified; K21.9 Gastro-esophageal reflux disease without esophagitis; F02.80 Dementia in other diseases classified elsewhere, unspecified severity, without behavioral disturbance, psychotic disturbance, mood disturbance, and anxiety; Z90.49 Acquired absence of other specified parts of digestive tract ==

== ENCOUNTER → 2019-10-06 | Outpatient (CLI) | payer MEDICARE | LOC: M.WC 04:53 | DX: E11.621 Type 2 diabetes mellitus with foot ulcer (principal); L97.512 Non-pressure chronic ulcer of other part of right foot with fat layer exposed; L03.115 Cellulitis of right lower limb; G47.30 Sleep apnea, unspecified; G30.9 Alzheimer's disease, unspecified; I50.9 Heart failure, unspecified; I89.0 Lymphedema, not elsewhere classified; I87.2 Venous insufficiency (chronic) (peripheral); K21.9 Gastro-esophageal reflux disease without esophagitis; F02.80 Dementia in other diseases classified elsewhere, unspecified severity, without behavioral disturbance, psychotic disturbance, mood disturbance, and anxiety; Z90.49 Acquired absence of other specified parts of digestive tract ==

== ENCOUNTER → 2019-10-27 | Outpatient (CLI) | payer MEDICARE | LOC: M.WC 10-20 13:00 | DX: E10.621 Type 1 diabetes mellitus with foot ulcer (principal); L97.512 Non-pressure chronic ulcer of other part of right foot with fat layer exposed; L03.115 Cellulitis of right lower limb; I87.2 Venous insufficiency (chronic) (peripheral); I50.9 Heart failure, unspecified; I89.0 Lymphedema, not elsewhere classified; G47.30 Sleep apnea, unspecified; G30.9 Alzheimer's disease, unspecified; K21.9 Gastro-esophageal reflux disease without esophagitis; F02.80 Dementia in other diseases classified elsewhere, unspecified severity, without behavioral disturbance, psychotic disturbance, mood disturbance, and anxiety; Z90.49 Acquired absence of other specified parts of digestive tract ==

== ENCOUNTER → 2019-11-10 | Outpatient (CLI) | payer MEDICARE | LOC: M.WC 05:00 | DX: E10.621 Type 1 diabetes mellitus with foot ulcer (principal); L97.512 Non-pressure chronic ulcer of other part of right foot with fat layer exposed; L03.115 Cellulitis of right lower limb; I89.0 Lymphedema, not elsewhere classified; I87.2 Venous insufficiency (chronic) (peripheral); I50.9 Heart failure, unspecified; G47.30 Sleep apnea, unspecified; G30.9 Alzheimer's disease, unspecified; K21.9 Gastro-esophageal reflux disease without esophagitis; F02.80 Dementia in other diseases classified elsewhere, unspecified severity, without behavioral disturbance, psychotic disturbance, mood disturbance, and anxiety; Z90.49 Acquired absence of other specified parts of digestive tract ==

== ENCOUNTER → 2019-11-24 | Outpatient (CLI) | payer MEDICARE | LOC: M.WC 03:18 | DX: E11.621 Type 2 diabetes mellitus with foot ulcer (principal); L97.512 Non-pressure chronic ulcer of other part of right foot with fat layer exposed; L03.115 Cellulitis of right lower limb; I87.2 Venous insufficiency (chronic) (peripheral); I89.0 Lymphedema, not elsewhere classified; I50.9 Heart failure, unspecified; G47.30 Sleep apnea, unspecified; G30.9 Alzheimer's disease, unspecified; K21.9 Gastro-esophageal reflux disease without esophagitis; F02.80 Dementia in other diseases classified elsewhere, unspecified severity, without behavioral disturbance, psychotic disturbance, mood disturbance, and anxiety; Z90.49 Acquired absence of other specified parts of digestive tract ==

== ENCOUNTER → 2019-12-08 | Outpatient (CLI) | payer MEDICARE | LOC: M.WC 02:42 | DX: E10.621 Type 1 diabetes mellitus with foot ulcer (principal); L97.512 Non-pressure chronic ulcer of other part of right foot with fat layer exposed; L03.115 Cellulitis of right lower limb; I89.0 Lymphedema, not elsewhere classified; I87.2 Venous insufficiency (chronic) (peripheral); I50.9 Heart failure, unspecified; G47.30 Sleep apnea, unspecified; G30.9 Alzheimer's disease, unspecified; K21.9 Gastro-esophageal reflux disease without esophagitis; F02.80 Dementia in other diseases classified elsewhere, unspecified severity, without behavioral disturbance, psychotic disturbance, mood disturbance, and anxiety ==

== ENCOUNTER → 2020-01-12 | Outpatient (CLI) | payer MEDICARE | LOC: M.WC 04:51 | PROVIDERS: ATTEND Podiatrist Foot & Ankle Surgery | DX: E10.621 Type 1 diabetes mellitus with foot ulcer (principal); L97.512 Non-pressure chronic ulcer of other part of right foot with fat layer exposed; E10.622 Type 1 diabetes mellitus with other skin ulcer; L97.811 Non-pressure chronic ulcer of other part of right lower leg limited to breakdown of skin; L03.115 Cellulitis of right lower limb; I89.0 Lymphedema, not elsewhere classified; I87.2 Venous insufficiency (chronic) (peripheral); I50.9 Heart failure, unspecified; G47.30 Sleep apnea, unspecified; G30.9 Alzheimer's disease, unspecified; K21.9 Gastro-esophageal reflux disease without esophagitis; F02.80 Dementia in other diseases classified elsewhere, unspecified severity, without behavioral disturbance, psychotic disturbance, mood disturbance, and anxiety; Z90.49 Acquired absence of other specified parts of digestive tract ==

== ENCOUNTER → 2020-02-02 | Outpatient (CLI) | payer MEDICARE | LOC: M.WC 05:59 | PROVIDERS: ATTEND Podiatrist Foot & Ankle Surgery | DX: E10.621 Type 1 diabetes mellitus with foot ulcer (principal); L97.512 Non-pressure chronic ulcer of other part of right foot with fat layer exposed; L03.115 Cellulitis of right lower limb; I89.0 Lymphedema, not elsewhere classified; I87.2 Venous insufficiency (chronic) (peripheral); I50.9 Heart failure, unspecified; G47.30 Sleep apnea, unspecified; G30.9 Alzheimer's disease, unspecified; K21.9 Gastro-esophageal reflux disease without esophagitis; F02.80 Dementia in other diseases classified elsewhere, unspecified severity, without behavioral disturbance, psychotic disturbance, mood disturbance, and anxiety; Z90.49 Acquired absence of other specified parts of digestive tract ==

== ENCOUNTER → 2020-02-23 | Outpatient (CLI) | payer MEDICARE | LOC: M.WC 05:10 | PROVIDERS: ATTEND Podiatrist Foot & Ankle Surgery | DX: E10.621 Type 1 diabetes mellitus with foot ulcer (principal); L97.512 Non-pressure chronic ulcer of other part of right foot with fat layer exposed; L03.115 Cellulitis of right lower limb; I89.0 Lymphedema, not elsewhere classified; I50.9 Heart failure, unspecified; I87.2 Venous insufficiency (chronic) (peripheral); G47.30 Sleep apnea, unspecified; G30.9 Alzheimer's disease, unspecified; K21.9 Gastro-esophageal reflux disease without esophagitis; F02.80 Dementia in other diseases classified elsewhere, unspecified severity, without behavioral disturbance, psychotic disturbance, mood disturbance, and anxiety; Z90.49 Acquired absence of other specified parts of digestive tract ==

== ENCOUNTER → 2020-03-15 | Outpatient (CLI) | payer MEDICARE | LOC: M.WC 04:03 | PROVIDERS: ATTEND Podiatrist Foot & Ankle Surgery | DX: E10.621 Type 1 diabetes mellitus with foot ulcer (principal); L97.512 Non-pressure chronic ulcer of other part of right foot with fat layer exposed; L03.115 Cellulitis of right lower limb; I87.2 Venous insufficiency (chronic) (peripheral); I89.0 Lymphedema, not elsewhere classified; I50.9 Heart failure, unspecified; G47.30 Sleep apnea, unspecified; G30.9 Alzheimer's disease, unspecified; K21.9 Gastro-esophageal reflux disease without esophagitis; F02.80 Dementia in other diseases classified elsewhere, unspecified severity, without behavioral disturbance, psychotic disturbance, mood disturbance, and anxiety; Z90.49 Acquired absence of other specified parts of digestive tract ==

== ENCOUNTER → 2020-04-05 | Outpatient (CLI) | payer MEDICARE | LOC: M.WC 03:53 | PROVIDERS: ATTEND Podiatrist Foot & Ankle Surgery | DX: E11.621 Type 2 diabetes mellitus with foot ulcer (principal); L97.512 Non-pressure chronic ulcer of other part of right foot with fat layer exposed; I87.2 Venous insufficiency (chronic) (peripheral); I89.0 Lymphedema, not elsewhere classified; I50.9 Heart failure, unspecified; G47.30 Sleep apnea, unspecified; G30.9 Alzheimer's disease, unspecified; F02.80 Dementia in other diseases classified elsewhere, unspecified severity, without behavioral disturbance, psychotic disturbance, mood disturbance, and anxiety; Z90.49 Acquired absence of other specified parts of digestive tract ==

== ENCOUNTER → 2020-04-26 | Outpatient (CLI) | payer MEDICARE | LOC: M.WC 04:52 | PROVIDERS: ATTEND Podiatrist Foot & Ankle Surgery | DX: E10.621 Type 1 diabetes mellitus with foot ulcer (principal); L97.512 Non-pressure chronic ulcer of other part of right foot with fat layer exposed; E10.622 Type 1 diabetes mellitus with other skin ulcer; L97.822 Non-pressure chronic ulcer of other part of left lower leg with fat layer exposed; L03.115 Cellulitis of right lower limb; I89.0 Lymphedema, not elsewhere classified; E10.42 Type 1 diabetes mellitus with diabetic polyneuropathy; G47.30 Sleep apnea, unspecified; G30.9 Alzheimer's disease, unspecified; I50.9 Heart failure, unspecified; I87.2 Venous insufficiency (chronic) (peripheral); K21.9 Gastro-esophageal reflux disease without esophagitis; F02.80 Dementia in other diseases classified elsewhere, unspecified severity, without behavioral disturbance, psychotic disturbance, mood disturbance, and anxiety; Z90.49 Acquired absence of other specified parts of digestive tract ==

== ENCOUNTER → 2020-05-10 | Outpatient (CLI) | payer MEDICARE | LOC: M.WC 05:22 | PROVIDERS: ATTEND Podiatrist Foot & Ankle Surgery | DX: E10.621 Type 1 diabetes mellitus with foot ulcer (principal); L97.512 Non-pressure chronic ulcer of other part of right foot with fat layer exposed; L03.115 Cellulitis of right lower limb; I50.9 Heart failure, unspecified; I89.0 Lymphedema, not elsewhere classified; I87.2 Venous insufficiency (chronic) (peripheral); G47.30 Sleep apnea, unspecified; G30.9 Alzheimer's disease, unspecified; K21.9 Gastro-esophageal reflux disease without esophagitis; F02.80 Dementia in other diseases classified elsewhere, unspecified severity, without behavioral disturbance, psychotic disturbance, mood disturbance, and anxiety; Z90.49 Acquired absence of other specified parts of digestive tract ==

== ENCOUNTER → 2020-07-05 | Outpatient (CLI) | payer MEDICARE | LOC: M.WC 12:42 | PROVIDERS: ATTEND Podiatrist Foot & Ankle Surgery | DX: E10.621 Type 1 diabetes mellitus with foot ulcer (principal); L97.512 Non-pressure chronic ulcer of other part of right foot with fat layer exposed; L03.115 Cellulitis of right lower limb; I50.9 Heart failure, unspecified; I89.0 Lymphedema, not elsewhere classified; I87.2 Venous insufficiency (chronic) (peripheral); G47.30 Sleep apnea, unspecified; G30.9 Alzheimer's disease, unspecified; K21.9 Gastro-esophageal reflux disease without esophagitis; F02.80 Dementia in other diseases classified elsewhere, unspecified severity, without behavioral disturbance, psychotic disturbance, mood disturbance, and anxiety; Z90.49 Acquired absence of other specified parts of digestive tract ==

== ENCOUNTER → 2020-08-16 | Outpatient (CLI) | payer OTHER | LOC: M.WC 13:00 | PROVIDERS: ATTEND Podiatrist Foot & Ankle Surgery | DX: E10.621 Type 1 diabetes mellitus with foot ulcer (principal); L97.512 Non-pressure chronic ulcer of other part of right foot with fat layer exposed; L03.115 Cellulitis of right lower limb; I50.9 Heart failure, unspecified; I89.0 Lymphedema, not elsewhere classified; I87.2 Venous insufficiency (chronic) (peripheral); G47.30 Sleep apnea, unspecified; G30.9 Alzheimer's disease, unspecified; K21.9 Gastro-esophageal reflux disease without esophagitis; F02.80 Dementia in other diseases classified elsewhere, unspecified severity, without behavioral disturbance, psychotic disturbance, mood disturbance, and anxiety; Z90.49 Acquired absence of other specified parts of digestive tract ==

== ENCOUNTER → 2021-01-10 | Outpatient (CLI) | payer OTHER | LOC: M.WC 13:36 | PROVIDERS: ATTEND Podiatrist Foot & Ankle Surgery | DX: E11.621 Type 2 diabetes mellitus with foot ulcer (principal); L97.411 Non-pressure chronic ulcer of right heel and midfoot limited to breakdown of skin; L89.892 Pressure ulcer of other site, stage 2; L97.522 Non-pressure chronic ulcer of other part of left foot with fat layer exposed; E11.622 Type 2 diabetes mellitus with other skin ulcer; L97.821 Non-pressure chronic ulcer of other part of left lower leg limited to breakdown of skin; L84 Corns and callosities; I50.9 Heart failure, unspecified; I89.0 Lymphedema, not elsewhere classified; G47.30 Sleep apnea, unspecified; G30.9 Alzheimer's disease, unspecified; K21.9 Gastro-esophageal reflux disease without esophagitis; F02.80 Dementia in other diseases classified elsewhere, unspecified severity, without behavioral disturbance, psychotic disturbance, mood disturbance, and anxiety; Z90.49 Acquired absence of other specified parts of digestive tract; Z79.84 Long term (current) use of oral hypoglycemic drugs; Z79.82 Long term (current) use of aspirin ==

== ENCOUNTER → 2021-01-24 | Outpatient (CLI) | payer OTHER ==
[2021-01-24 14:31] LABS: ABSOLUTE BASOPHILS 0.1 thou/uL (0.0-0.2); ABSOLUTE EOSINOPHILS 0.1 thou/uL (0.0-0.7); ABSOLUTE LYMPHOCYTES 0.7 thou/uL (0.8-5.3); ABSOLUTE MONOCYTES 0.7 thou/uL (0.0-1.2); ABSOLUTE NEUTROPHILS 6.5 thou/uL (1.6-8.1); BASOPHILS 0.7 %; EOSINOPHILS 1.5 %; HEMATOCRIT 35.7 % (42.0-52.0); HEMOGLOBIN 11.6 gm/dL (14.0-18.0); LYMPHOCYTES 8.2 %; MCH 26.9 pg (26.0-34.0); MCHC 32.5 g/dL (28.0-37.0); MCV 82.9 fL (80.0-100.0); MONOCYTES 8.4 %; MPV 8.6 fl. (7.2-11.1); NUCLEATED RBCS 0 /100WBC; PLATELET COUNT* 154 thou/uL (150-400); POLYS 81.2 %; RBC 4.31 mil/uL (4.50-6.00); RDW-CV 17.7 % (10.5-14.5); WBC 8.1 thou/uL (4.0-11.0)
[2021-01-24 14:39] LABS: CALCIUM 8.4 mg/dL (8.5-10.1); CREATININE 1.5 mg/dL (0.6-1.3); POTASSIUM 4.8 mmol/L (3.5-5.1)
[2021-01-24 15:38] LABS: ESR (SEDRATE) 42 mm/hr (0-20)
== END ==
LOC: M.WC 12:53
PROVIDERS: ATTEND Podiatrist Foot & Ankle Surgery
DX: E10.621 Type 1 diabetes mellitus with foot ulcer (principal); L97.411 Non-pressure chronic ulcer of right heel and midfoot limited to breakdown of skin; L89.892 Pressure ulcer of other site, stage 2; L97.522 Non-pressure chronic ulcer of other part of left foot with fat layer exposed; E10.622 Type 1 diabetes mellitus with other skin ulcer; L97.821 Non-pressure chronic ulcer of other part of left lower leg limited to breakdown of skin; L03.115 Cellulitis of right lower limb; L84 Corns and callosities; I50.9 Heart failure, unspecified; I89.0 Lymphedema, not elsewhere classified; I87.2 Venous insufficiency (chronic) (peripheral); G47.30 Sleep apnea, unspecified; G30.9 Alzheimer's disease, unspecified; K21.9 Gastro-esophageal reflux disease without esophagitis; F02.80 Dementia in other diseases classified elsewhere, unspecified severity, without behavioral disturbance, psychotic disturbance, mood disturbance, and anxiety; Z90.49 Acquired absence of other specified parts of digestive tract

== ENCOUNTER 2021-02-01 05:15 | Inpatient (IN) | payer OTHER ==
[~2021-02-01] VITALS: Ht 170.2 cm; Wt 158.8 kg
[2021-02-01 05:17] VITALS: BP 160/131
[2021-02-01 05:55] LABS: ABSOLUTE BASOPHILS 0.1 thou/uL (0.0-0.2); ABSOLUTE EOSINOPHILS 0.1 thou/uL (0.0-0.7); ABSOLUTE LYMPHOCYTES 0.5 thou/uL (0.8-5.3); ABSOLUTE MONOCYTES 0.6 thou/uL (0.0-1.2); ABSOLUTE NEUTROPHILS 5.5 thou/uL (1.6-8.1); BASOPHILS 0.9 %; EOSINOPHILS 1.4 %; HEMATOCRIT 34.3 % (42.0-52.0); HEMOGLOBIN 11.1 gm/dL (14.0-18.0); LYMPHOCYTES 7.4 %; MCH 26.8 pg (26.0-34.0); MCHC 32.5 g/dL (28.0-37.0); MCV 82.5 fL (80.0-100.0); MONOCYTES 8.3 %; MPV 8.6 fl. (7.2-11.1); NUCLEATED RBCS 0 /100WBC; PLATELET COUNT* 173 thou/uL (150-400); RBC 4.15 mil/uL (4.50-6.00); RDW-CV 17.6 % (10.5-14.5); WBC 6.7 thou/uL (4.0-11.0)
[2021-02-01 06:10] LABS: CALCIUM 7.6 mg/dL (8.5-10.1); CREATININE 1.5 mg/dL (0.6-1.3); POTASSIUM 4.1 mmol/L (3.5-5.1)
[2021-02-01 06:20] LABS: ALBUMIN 2.5 g/dL (3.4-5.0); MAGNESIUM 2.2 mg/dL (1.8-2.4); TOTAL BILIRUBIN 0.5 mg/dL (<0.1-1.0); TOTAL PROTEIN 7.7 g/dL (6.4-8.2)
[2021-02-01 06:22] LABS: BE 7.4 mmol/L (-2 to +3); PO2 84.6 mmHg (75.0-100.0)
[2021-02-01 06:23] LABS: PCO2 75.9 mmHg (35.0-45.0); pH 7.297 (7.340-7.450)
[2021-02-01 10:50] VITALS: BP 99/66
[2021-02-01 11:27] LABS: URINE BILIRUBIN NEGATIVE (Negative); URINE BLOOD NEGATIVE (Negative); URINE CLARITY CLEAR; URINE COLOR YELLOW; URINE GLUCOSE-RANDOM NEGATIVE (Negative); URINE KETONES NEGATIVE (Negative); URINE LEUKOCYTES-REFLEX NEGATIVE (Negative); URINE NITRITE-REFLEX NEGATIVE (Negative); URINE PROTEIN TRACE (Negative); URINE SPECIFIC GRAVITY 1.025 (1.005-1.030); URINE UROBILINOGEN 0.2 E.U./dl (0.2-1.0)
--- NOTE | 2021-02-01 11:57 | EKG ---
[place] [address] ELECTROCARDIOGRAM REPORT Name: KRAIG HERNANDEZ Room: [place] [address] ADM IN ..#: [id number] Admission: 02/01/21 Attend Phys: Janes Moyer, Discharge: Date of : 41 Date of Service: 02/01/21 0528 Report #: [id number] THIS REPORT FOR: //name// [facility] ED Test Date: 2021-02-01 Test Time: 05:28:08 Pat Name: KRAIG HERNANDEZ Department: Room: [facility] Gender: M Lodge Officer: : 1945 Requested By: Sissy Dasilva Order Number: [id number] MD: Bryson Villa Measurements Intervals [place] Rate: 80 P: 21 CO: 224 QRS: -61 QRSD: 151 T: 43 QT: 420 QTc: 485 Interpretive Statements Sinus rhythm Prolonged CO interval RBBB and LAFB Baseline wander in lead(s) V6 Compared to ECG 03/22/2019 16:54:27 First degree AV block now present Left anterior fascicular block now present Ventricular premature complex(es) no longer present Electronically Signed On 02-01-2021 11:57:39 CDT by Bryson Villa [email or web address] <ELECTRONICALLY SIGNED> By: Bryson Villa MD, [facility] 02/01/21 1157 7 0528 Bryson Villa MD, [facility] /EPI
[2021-02-01 14:50] VITALS: BP 151/85
[2021-02-01 18:53] VITALS: BP 138/67
[2021-02-01 19:37] VITALS: BP 122/74
[2021-02-01 22:00] VITALS: BP 132/87
--- NOTE | 2021-02-01 23:30 | NUR ---
RECIEVED PT FROM ED WITH C/O RESP FAILURE AND LOW GLUCOSE. ALERT AND ORIENTED X 4 , PT REFUSED BIPAP , AGREED TO NC AT 5L, LUNG SOUND DIMISHED THROUGHOUT, NO COUGH NOTED, D10W STARTED ORDERED. BLOOD SUGAR REMAIN UP AND DOWN THROUGHOUT THE NIGHT PT DRANK ORANGE JUICE AND ATE GRAM CRAKER AND PEANUT BUTTER. PT TO BATHROOM GAIT UNSTEADY. DR HENDERSON NOTIFED STATUS. WILL CONTINUE WI POC OF CARE AND REPORT CHANGES.
[2021-02-02] VITALS (7 sets, daily range): BP systolic 131–164; BP diastolic 67–87
[2021-02-02 04:41] LABS: HEMATOCRIT 34.8 % (42.0-52.0); HEMOGLOBIN 11.2 gm/dL (14.0-18.0); MCH 26.5 pg (26.0-34.0); MCHC 32.2 g/dL (28.0-37.0); MCV 82.3 fL (80.0-100.0); MPV 8.6 fl. (7.2-11.1); RBC 4.23 mil/uL (4.50-6.00); RDW-CV 17.4 % (10.5-14.5); WBC 7.1 thou/uL (4.0-11.0)
[2021-02-02 04:52] LABS: ANION GAP < 0 mmol/L (7-16); BUN 28 mg/dL (7-18); CALCIUM 7.5 mg/dL (8.5-10.1); CHLORIDE 103 mmol/L (98-107); CO2 38 mmol/L (21-32); CREATININE 1.4 mg/dL (0.6-1.3); SODIUM 140 mmol/L (136-145)
[2021-02-02 05:04] LABS: GLUCOSE 35 mg/dL (70-99)
--- NOTE | 2021-02-02 05:34 | NUR ---
pT REFUSED TO WEAR BIPAP LAST NIGHT WORE HIS 3LPM NASAL CANNULA
--- NOTE | 2021-02-02 11:18 | NUR ---
WOUND NURSE: PATIENT WAS SEEN FOR ASSESSMENT PERTAINING TO BILATEAL FOOT WOUNDS. RIGH DORSAL FOOT WOUND WITH PINK TO RED GRANULATION TISSUE IN THE WOUND BED. THIN LAYER OF YELLOW EXUDATE WAS DEBRIDED FROM THE WOUND BY MANAGED CARE ANALYST. MEASUREMENTS DOCUMENTED PRE AND POST DEBRIDEMENT ON BOTH WOUNDS -- SEE DEBRIDEMENT FORM. LEFT FOOT WITH FULL THICKNESS DIABETIC ULCER ALONG LATEAL FOOT BUT WITH DEPTH AT THE 5TH MET ON PLANTAR SURFACT. REMAINING WOUND WITH PEELING SKIN AND PINK NONGRANULATING TISSUE. POINT OF DEPTH WITH RED, NONGRANULATING TISSUE IN THE WOUND BED. PERIWOUND REDNESS AND WARMTH NOTED. NO ODOR POST CLEANSING WITH SOAP AND WATER. PATIENT INSTRUCTED ON MEASURES TO PROMOTE HEALING AND PREVENT FURTHER COMPLICATIONS. REINFORCEMENT WILL BE NECESSARY.
--- NOTE | 2021-02-02 12:57 | NUR ---
Nutrition: Consult received for "uncontrolled DM." Pt sound asleep at time of visit. Bipap on. Lunch tray was untouched. RD left DM diet educ handouts on table. RD contact info provided as well. RD to follow up for educ next week. RD available. F/u 02/06/21.
--- NOTE | 2021-02-02 13:11 | NUR ---
Pt is A&O. Resides at home with . Pt has home o2 and a trilogy. Pt is current with [facility] p:[phone] f:[phone] and plans to resume at dc. Therapies consulted. Wound care and podiatry consulted. Pt on bipap. Lasix gtt. No weekend dc planned. CM following.
--- NOTE | 2021-02-02 17:18 | 2DMMODE ---
[place] [address] 2 D/M-MODE ECHOCARDIOGRAM Name: MARYKRAIG Merlene Room: [address] [facility]#: [id number] Admission: 02/01/21 Attend Phys: Janes Moyer, Discharge: Date of : 41 Date of Service: 02/02/21 1717 Report #: [id number] THIS REPORT FOR: cc: Marco A Blanco MD, Meng MD Blick, David R. MD [facility] ~ APPROVED REPORT Study performed: 02/02/2021 13:49:22 EXAM: Comprehensive 2D, Doppler, and color-flow Echocardiogram Patient Location: In-Patient Room #: [facility] Status: routine BSA: 2.57 HR: 100 bpm BP: 135/67 mmHg Rhythm: NSR Other Information Study Quality: Good Indications Diabetes 2D Dimensions IVSd: 13.12 (7-11mm) LVOT Diam: 20.84 (18-24mm) LVDd: 46.92 mm PWd: 13.13 (7-11mm) Ascending Ao: 30.05 (22-36mm) LVDs: 31.69 (25-40mm) Aortic Root: 32.27 mm Volumes Left Atrial Volume (Systole) LA ESV Index: 29.30 mL/m2 Aortic Valve AoV Peak Brian.: 1.39 m/s AO Peak Gr.: 7.77 mmHg LVOT Max P.92 mmHg AO Mean Gr.: 4.47 mmHg LVOT Mean P.65 mmHg LVOT Max V: 0.99 m/s AO V2 VTI: 26.48 cm LVOT Mean V: 0.58 m/s JASON (VTI): 2.45 cm2 LVOT V1 VTI: 19.01 [place] [address] 2 D/M-MODE ECHOCARDIOGRAM Name: KRAIG HERNANDEZ Room: [address]#: [id number] Admission: 02/01/21 Attend Phys: Janes Moyer, Discharge: Date of : 41 Date of Service: 02/02/21 1717 Report #: [id number] Mitral Valve E/A Ratio: 0.75 MV Decel. Time: 87.02 ms MV E Max Brian.: 0.58 m/s MV PHT: 25.24 ms MVA (PHT): 8.72 cm2 TDI E/Lateral E': 5.80 Lateral E' Brian.: 0.10 m/s Pulmonary Valve PV Peak Brian.: 0.86 m/s PV Peak Gr.: 2.97 mmHg Tricuspid Valve RAP Estimate: 15.00 mmHg TR Peak Gr.: 50.95 mmHg RVSP: 66.00 mmHg PA Pressure: 66.00 mmHg Left Ventricle The left ventricle is normal size. There is normal LV segmental wall motion. Mild concentric left ventricular hypertrophy. Left ventricular systolic function is normal. The left ventricular ejection fraction is within the normal range. LVEF is 55-60%. Grade I - abnormal relaxation pattern. Right Ventricle Right ventricle is mildly dilated. The right ventricular systolic function is normal. Atria The left atrium size is normal. The right atrium size is normal. Aortic Valve The Aortic valve is sclerotic. No aortic regurgitation is present. There is no aortic valvular stenosis. Mitral Valve The mitral valve is normal in structure. Trace mitral regurgitation. No evidence of mitral valve stenosis. Tricuspid Valve The tricuspid valve is normal in structure. Mild tricuspid regurgitation. estimated pa pressure 50 [place] [address] 2 D/M-MODE ECHOCARDIOGRAM Name: KRAIG HERNANDEZ Room: [address]#: [id number] Admission: 02/01/21 Attend Phys: Janes Moyer, Discharge: Date of : 41 Date of Service: 02/02/21 1717 Report #: [id number] Pulmonic Valve The pulmonary valve is normal in structure. There is no pulmonic valvular regurgitation. Great Vessels The aortic root is normal in size. IVC is dilated and collapses <50% with inspiration. Pericardium There is no pericardial effusion. <Conclusion> Mild concentric left ventricular hypertrophy. LVEF is 55-60%. Right ventricle is mildly dilated. The Aortic valve is sclerotic. Mild tricuspid regurgitation. estimated pa pressure 50 mm Hg IVC is dilated and collapses <50% with inspiration. <ELECTRONICALLY SIGNED> By: Anastacio Schulte MD, [facility] 02/02/21 171 16 16 Anastacio Schulte MD, FACC /INF
[2021-02-03 04:00] VITALS: BP 146/90
--- NOTE | 2021-02-03 05:15 | NUR ---
PT SLEPT MOST OF SHIFT. ASSESSMENT DOCUMENTED. MEDS GIVEN PER E-MAR. IV PATENT, FLUIDS INFUSING. NO REPORTS OF PAIN. PT CURRENTLY REFUSING CHAIR ALARM, PT EDUCATED. PT INCONTINENT OF BOWEL AND BLADDER. BIPAP WORN PART OF SHIFT. PT ABLE TO MAKE NEEDS KNOWN. WILL CONTINUE WITH PLAN OF CARE.
--- NOTE | 2021-02-03 07:19 | NUR ---
DR NOTIFIED OF GLUCOSE STAYING UP AND PT BECOMING EDEMATOUS. ORDERES RECIEVED TO STOP FLUIDS.
--- NOTE | 2021-02-03 07:20 | NUR ---
UNABLE TO GET ACCURATE I&O DUE TO PT BEING INCONTINENT
[2021-02-03 08:00] VITALS: BP 161/45
[2021-02-03 15:16] VITALS: BP 107/72
[2021-02-03 17:15] VITALS: BP 110/74
--- NOTE | 2021-02-03 19:47 | NUR ---
PT SLOWLY PROGRESSING TOWARDS DC GOALS. PT HAS 2 SALINE LOCKS ONE IN LEFT WRIST AND LEFT FOREARM. PT UP WITH SBA TO BSC. VSS AFEBRILE. REMAINS TACHY AND FLIPPED INTO AFIB THIS AFTERNOON. WILL CONTINUE TO MONITOR PLAN OF CARE.
[2021-02-03 20:00] VITALS: BP 143/84
[2021-02-04] VITALS (7 sets, daily range): BP systolic 131–153; BP diastolic 70–94
--- NOTE | 2021-02-04 01:40 | NUR ---
PT ALERT, ORIENTED, ANXIOUS. EXECUTIVE CHEF ASSISTANT TRACIND AFIB. CLONAZEPAM AND MELATONIN HS. INCONTINENT OF STOOL. PT USES URINAL BUT SPILLS. O2 AT 3 LITERS NC. BIPAP HS.
[2021-02-04 12:00] LABS: HEMATOCRIT 34.7 % (42.0-52.0); HEMOGLOBIN 11.3 gm/dL (14.0-18.0); MCH 26.6 pg (26.0-34.0); MCHC 32.4 g/dL (28.0-37.0); MPV 8.7 fl. (7.2-11.1); RBC 4.24 mil/uL (4.50-6.00); RDW-CV 17.2 % (10.5-14.5); WBC 10.1 thou/uL (4.0-11.0)
[2021-02-04 12:09] LABS: CALCIUM 7.9 mg/dL (8.5-10.1); CREATININE 1.4 mg/dL (0.6-1.3); POTASSIUM 4.3 mmol/L (3.5-5.1)
[2021-02-05 03:37] LABS: HEMATOCRIT 35.1 % (42.0-52.0); HEMOGLOBIN 11.5 gm/dL (14.0-18.0); MCH 26.8 pg (26.0-34.0); MCHC 32.7 g/dL (28.0-37.0); MCV 81.9 fL (80.0-100.0); MPV 8.5 fl. (7.2-11.1); RBC 4.28 mil/uL (4.50-6.00); RDW-CV 17.4 % (10.5-14.5); WBC 9.3 thou/uL (4.0-11.0)
[2021-02-05 04:00] VITALS: BP 134/77
[2021-02-05 04:20] LABS: ALBUMIN 2.6 g/dL (3.4-5.0); CREATININE 1.6 mg/dL (0.6-1.3); POTASSIUM 4.3 mmol/L (3.5-5.1); TOTAL BILIRUBIN 1.1 mg/dL (<0.1-1.0)
--- NOTE | 2021-02-05 05:46 | NUR ---
PT SLEPT ON AND OFF THIS SHIFT. PT REMAINED IN RECLINER ENTIRE SHIFT. ASSESSMENT DOCUMENTED. MEDS GIVEN PER E-MAR. IV PATENT. NO REPORTS OF PAIN. FALL PRECAUTIONS IN PLACE. WILL CONTINUE WITH PLAN OF CARE.
[2021-02-05 08:00] VITALS: BP 138/68
--- NOTE | 2021-02-05 11:55 | NUR ---
WOUND NURSE: PATIENT SEEN FOR DRESSING CHANGE AND FOLLOW UP ASSESSMENT. RIGHT DORSAL FOOT WITH THIN LAYER PINKISH YELLOW EXUDATE COVERIN THE WOUND BED. APPEARS SHALLOW AND TRIANGULAR IN SHAPE. LARGE AMOUNT OF SEROUS DRAINAGE ON OLD DRESSING. MEASURES 2.0 X 5.5 X 0.2 CM. LEFT 5TH METATARSAL PRESENTS A DEEP CIRCIFORM DIABETIC LESION CONTAINING RED, NONGRANULATING TISSUE IN THE WOUND BED, MODERATE AMOUNT OF SEROUSANGUINOUS DRAINAGE. THERE IS PERIWOUND REDNESS AND WARMTH. PERIWOUND TISSUE WITH EXCORIATION BUT IMPROVING COMPARED TO FRIDAY. PATIENT WITH SIGNIICANT LYMPHEDEMA IN BLE. DRESSINGS AND COMPESSION WRAPS CHANGED PRESCRIBED. PATIENT WITH SERVERAL VISITORS. TEACHING DEFERRED A RESULT.
--- NOTE | 2021-02-05 12:29 | NUR ---
Nutrition: follow up note. Left DM diet educ handouts with pt last week. Following up today for educ. Pt soundly sleeping at time of visit. Spoke with his gmlnfcd-xm-mac who stated pt's sister helps pt out a lot. Pt's sister tries to help pt with healthier diet and she may have quesitons for RD. I gave my contact info to family and encouraged them to call with any questions. Wuqvjxj-pw-zgi will inform pt's sister when he sees her. Encouraged them to call and stressed the importance o a better diet for pt's overall health. RD available via consult for further needs.
[2021-02-05 16:00] VITALS: BP 133/67
--- NOTE | 2021-02-05 16:01 | NUR ---
Pt to have MRI of foot today. Continue IVabx and lasix. Anticipate dc in a few days.
--- NOTE | 2021-02-05 18:33 | NUR ---
RECEIED REPORT AROUND 0715. ASSUMED CARE. VS AND ASSESSMENT CHARTED. IV INTACT. HEART MONITOR ATTACHED THIS AM. HEART MONITOR TAKEN OFF. MED/SURG STATUS NOW. WENT DOWN TO MRI, PT COULD NOT TOLERATE BEING OFF BIPAP WHILE IN MRI. MRI DID NOT GET COMPLETED. PT HAD TO COME BACK TO UNIT TO BE PUT ON BIPAP. LEGS WRAPPED TODAY BY WOUND NURSE. MEDS GIVEN PER MAR. HOURLY ROUNDING PERFORMED. PT INTERMITTENLY CONFUSED. BOWEL MOVEMENT THIS SHIFT. CALL LIGHT WITH IN REACH. WILL CONTINUE TO MONITOR.
[2021-02-05 20:30] VITALS: BP 145/55
[2021-02-06 03:29] LABS: HEMATOCRIT 33.9 % (42.0-52.0); HEMOGLOBIN 10.9 gm/dL (14.0-18.0); MCH 26.3 pg (26.0-34.0); MCHC 32.1 g/dL (28.0-37.0); MCV 81.8 fL (80.0-100.0); MPV 8.7 fl. (7.2-11.1); RBC 4.14 mil/uL (4.50-6.00); RDW-CV 17.4 % (10.5-14.5); WBC 7.1 thou/uL (4.0-11.0)
[2021-02-06 03:39] LABS: CALCIUM 7.7 mg/dL (8.5-10.1); CREATININE 1.6 mg/dL (0.6-1.3); MAGNESIUM 1.9 mg/dL (1.8-2.4); POTASSIUM 4.1 mmol/L (3.5-5.1)
[2021-02-06 07:50] VITALS: BP 149/84
[2021-02-06 11:52] VITALS: BP 131/70
--- NOTE | 2021-02-06 12:15 | NUR ---
THIS ROVING WEIGHT GAUGER AGREES WITH DOCUMENTED EVALUATION BY SHEELA BEAULIEU FOR THIS DAY. BECKY BERNALT
--- NOTE | 2021-02-06 14:06 | NUR ---
Pt's prescriptions were called into [facility] pharmacy on [address] in [place].
--- NOTE | 2021-02-06 14:17 | NUR ---
RIGHT BASILIC VESSEL ACCESSED FOR 4 SWISS SINGLE LUMEN PICC. LINE PRE-TRIMMED TO 42 CN AND ADVANCED TO THE ZERO JOAN WITH NO RESISTANCE MET. UPPER ARM CIRCUMFERENCE ABOVE INSERTION SITE=14". SHERLOCK MAGNET AND 3CG CONFIRMATION OF TIP TERMINATION AT THE CAVOATRIAL JUNCTION APPRECIATED. GUIDE WIRE REMOVED, LINE FLUSHED AND INSERTION SITE DRESSED. REPORT GIVEN TO BARBARA MARTINEZ.
--- NOTE | 2021-02-06 14:39 | NUR ---
Plan to reattempt MRI of foot today. Therapies to eval. Pt adament that he wants to dc home, open to HH. Anticipate dc in a few days.
[2021-02-06 19:21] VITALS: BP 150/80
[2021-02-06 20:00] VITALS: BP 141/82; BP 147/81
[2021-02-07 04:22] VITALS: BP 151/87
[2021-02-07 04:57] LABS: HEMATOCRIT 33.4 % (42.0-52.0); HEMOGLOBIN 10.9 gm/dL (14.0-18.0); MCH 26.7 pg (26.0-34.0); MCHC 32.6 g/dL (28.0-37.0); MCV 81.7 fL (80.0-100.0); MPV 8.6 fl. (7.2-11.1); RBC 4.09 mil/uL (4.50-6.00); RDW-CV 17.4 % (10.5-14.5); WBC 9.5 thou/uL (4.0-11.0)
[2021-02-07 05:04] LABS: ALBUMIN 2.6 g/dL (3.4-5.0); ALKALINE PHOSPHATASE 172 U/L (46-116); ANION GAP < 0 mmol/L (7-16); BUN 33 mg/dL (7-18); CALCIUM 7.8 mg/dL (8.5-10.1); CHLORIDE 102 mmol/L (98-107); CO2 41 mmol/L (21-32); CREATININE 1.5 mg/dL (0.6-1.3); GLUCOSE 142 mg/dL (70-99); MAGNESIUM 2.1 mg/dL (1.8-2.4); POTASSIUM 4.6 mmol/L (3.5-5.1); SGOT 43 U/L (15-37); SGPT 115 U/L (30-65); SODIUM 141 mmol/L (136-145); TOTAL BILIRUBIN 0.9 mg/dL (<0.1-1.0); TOTAL PROTEIN 7.8 g/dL (6.4-8.2)
--- NOTE | 2021-02-07 05:33 | NUR ---
ASSUMED PT CARE AT APPROX. 1930. PT SITTING UPRIGHT IN CHAIR W/ FAMILY AT CHAIR SIDE. PT IS MED-SURG STATUS. PT IS A/OX4. VSS. PT WEARS 3-5L NC AND BIPAP AT NOC. PT C/O SCROTAL EDEMA AND ANXIETY. MEDICATIONS ADMINISTERED PRESCRIBED. NO ACUTE CHANGES DURING SHIFT. ASSESSMENTS COMPLETE CHARTED. HOURLY ROUNDS COMPLETE CHARTED. PT CURRENTLY IN CHAIR ASLEEP. WILL CONT. TO MONITOR.
[2021-02-07 08:00] VITALS: BP 149/108
--- NOTE | 2021-02-07 12:59 | NUR ---
Anticipate dc tomorrow. Per , Pt will need ivabx. CM to fax referral to Etelvina at [facility] and requested that she checks benefits. Pt adament about going home at ms, ERIN to contact Pt's granddtr to determine if she will be able to assist Pt at home with the abx.
[2021-02-07 16:50] VITALS: BP 143/67
--- NOTE | 2021-02-07 17:03 | NUR ---
WOUND NURSE: PATIENT SEEN FOR FOLLOW UP ASSESSMENT AND DRESSING CHANGE TO BLE. RIGHT DORSAL FOOT WOUND WITHOUT CHANGE COMPARED TO FRIDAY. CONTAINS SEROUS DRAINAGE, THIN LAYER LIGHT YELLOW EXUDATE UNDER PINK GRANULATION TISSUE. LEFT 5TH METATARSAL WITH SMALL CRATER CONTAINING RED, NONGRANULATING TISSUE IN THE WOUND BED AND SEROUSANGUINOUS DRAINAGE. PERIWOUND IS TENDER, REDDENED, WARM TO TOUCH. WOUND CARE PROVIDED PRESCRIBED. PATIENT IS SCHEDULED FOR SURGERY ON FRIDAY DUE TO OSTEOMYELITIS LEFT FOOT BASED ON MRI RESULTS AND WOUND CHARACTERISTICS.
--- NOTE | 2021-02-07 17:57 | NUR ---
PATIENT RESTING SITTING IN RECLINER. C/O PAIN/DISCOMFORT TO SCROTOM AREA. PAIN MEDS GIVEN ORDERED. SAT 94% ON 3L NASAL CANNULA. PICC TO RIGHT UPPER ARM, PATENT. DRESSING C/D/I. 3+ EDEMA TO LOWER EXTREMETIES. WOUND CARE NURSE CHANGED WRAPPINGS ON LOWER EXTREMETIES TODAY, PATIENT TOLERATED WITHOUT DIFFICULTIES. ALERT AND ORIENTED X4. BLOOD SUGARS MONITORED THROUGHOUT SHIFT. INSULIN GIVEN ORDERED. ALL QUESTIONS AND CONCERNS ADDRESSED.
[2021-02-07 20:10] VITALS: BP 125/71
--- NOTE | 2021-02-08 05:53 | NUR ---
PT WAS SLEEPING THE FIRST PART OF THE PM SHIFT BUT WAS AWAKE FOR MUCH OF THE END OF THE SHIFT. HE REQUESTED SNACKS, USED BSC AND TOOK BIPAP OFF FOR A WHILE. PT STOOD AND PIVOTS TO BSC WITH STANDBY. FEET ARE WRAPPED BY WOUNDCARE FOR WOUNDS TO FEET. LABS WERE DRAWN VIA PICC WITH NO PROBLEM AND RESULTS ARE YET TO POST. WILL CONTINUE TO MONITOR.
[2021-02-08 08:00] VITALS: BP 122/67
[2021-02-08 12:00] VITALS: BP 125/63
--- NOTE | 2021-02-08 13:05 | NUR ---
Pt to have surgery tomorrow on left foot. CM checked the cost of IVABX through his insurance, Supplies $82.60/week until OOP of $3900 has been met, he has met $2181 of OOP. Med will be $95.57/week. CM to discuss with Pt for home ivabx vs SNF.
[2021-02-08 16:00] VITALS: BP 135/74
--- NOTE | 2021-02-08 17:53 | NUR ---
PT SLOWLY PROGRESSING TOWARDS DC GOALS. PT HAS A SINGLE LUMEN PICC IN THE RIGHT UPPER ARM FLUSHES WELL. VSS AFEBRILE. PT UP TO THE BEDSIDE COMMODE WITH SBA. PT CONTINUES TO HAVE INCONTINENT ESPISODES WITH BM. PT IS HARD TO HAVE STRICT I AND O. DUE TO INCONTINENCE OF BLADDER. PT WEARS BIPAP ALL THE TIME TAKES IT OFF TO EAT. WILL CONTINUE TO MONITOR PLAN OF CARE.
[2021-02-08 21:30] VITALS: BP 144/74
[2021-02-09] VITALS (15 sets, daily range): BP systolic 10–191; BP diastolic 12–110
--- NOTE | 2021-02-09 04:14 | NUR ---
PT ALERT AND ORIENTED, BIPAP 3L - ASSISTANCE NEEDED TO COMMODE/CHAIR. RECEIVED ALL MEDS/ABX SCHEDULE. ACHS. LOWER LEGS HAVE COMPRESSION DRESSINGS WHICH ARE C/D/I. PT IS SLEEPING IN CHAIR ALL SHIFT. HE USES URINAL FOR COMFORT. HE REPORTS NO PAIN AT THIS TIME. NPO SINCE MIDNIGHT.
[2021-02-09 09:10] LABS: ABSOLUTE BASOPHILS 0.1 thou/uL (0.0-0.2); ABSOLUTE EOSINOPHILS 0.2 thou/uL (0.0-0.7); ABSOLUTE LYMPHOCYTES 1.7 thou/uL (0.8-5.3); ABSOLUTE MONOCYTES 0.7 thou/uL (0.0-1.2); ABSOLUTE NEUTROPHILS 9.9 thou/uL (1.6-8.1); BASOPHILS 0.6 %; EOSINOPHILS 1.5 %; HEMATOCRIT 36.7 % (42.0-52.0); HEMOGLOBIN 11.6 gm/dL (14.0-18.0); LYMPHOCYTES 13.5 %; MCH 26.1 pg (26.0-34.0); MCHC 31.6 g/dL (28.0-37.0); MCV 82.6 fL (80.0-100.0); MONOCYTES 5.8 %; MPV 8.7 fl. (7.2-11.1); NUCLEATED RBCS 0 /100WBC; PLATELET COUNT* 140 thou/uL (150-400); POLYS 78.6 %; RBC 4.45 mil/uL (4.50-6.00); RDW-CV 17.2 % (10.5-14.5); WBC 12.5 thou/uL (4.0-11.0)
[2021-02-09 09:19] LABS: CREATININE 1.7 mg/dL (0.6-1.3); POTASSIUM 4.5 mmol/L (3.5-5.1)
--- NOTE | 2021-02-09 09:22 | NUR ---
Pt coded today, moved to ICU-1
[2021-02-09 09:24] LABS: INR 1.1; PROTIME 11.9 Seconds (9.20-11.50)
[2021-02-09 09:30] LABS: ALBUMIN 2.6 g/dL (3.4-5.0); TOTAL BILIRUBIN 1.1 mg/dL (<0.1-1.0); TOTAL PROTEIN 7.9 g/dL (6.4-8.2)
--- NOTE | 2021-02-09 09:32 | NUR ---
Code tayler called this morning. Patient became unresponsive after voiding on the floor. CPR initated and patient was transfered to ICU and is currently on a vent. Family notified of patient's change in condition. If patient is able to progress towards plan of care goals then CM will need to discuss IV abx at home vs. SNF if surgery is still needed. Patient to stay through the weekend. Cm to continue to follow
--- NOTE | 2021-02-09 11:16 | NUR ---
COMPLETED MORNING ROUNDS ON PT AT 0745. PT WAS A&Ox4 SITTING IN CHAIR. BIPAP WAS IN PLACE WITH 3LOX. VITALS STABLE, CHARTED. PT SPOKE TO ME ABOUT HOW HIS NIGHT WENT WHILE GETTING VITALS. WOUND NURSE CAME IN AFTER 8 TO REDRESS BANDAGES ON BLE AND GOT TO BED WITH THE HELP OF A TECH. PT BECAME UNRESPONSIVE AFTER LYING IN BED. CODE CALLED AT 0821. PT TRANSFERED AND ARRIVED TO ICU AT 0850. REPORT GIVEN TO ICU NURSE.
[2021-02-09 11:26] LABS: BE 3.3 mmol/L (-2 to +3); PO2 60.6 mmHg (75.0-100.0); pH 7.369 (7.340-7.450)
[2021-02-09 12:14] LABS: HEMATOCRIT 28.9 % (42.0-52.0); MCH 26.5 pg (26.0-34.0); MCHC 32.3 g/dL (28.0-37.0); MPV 9.2 fl. (7.2-11.1); NUCLEATED RBCS 0 /100WBC; PLATELET COUNT* 179 thou/uL (150-400); RBC 3.52 mil/uL (4.50-6.00); RDW-CV 17.1 % (10.5-14.5); WBC 20.9 thou/uL (4.0-11.0)
[2021-02-09 12:15] LABS: HEMOGLOBIN 9.3 gm/dL (14.0-18.0)
[2021-02-09 12:17] LABS: AMP/METHAMP Negative (Negative); BARBITURATES Negative (Negative); BENZODIAZEPINES Negative (Negative); COCAINE Negative (Negative); METHADONE Negative (Negative); OPIATES POSITIVE (Negative); PCP Negative (Negative); THC Negative (Negative)
[2021-02-09 12:25] LABS: CALCIUM 7.6 mg/dL (8.5-10.1); CREATININE 1.9 mg/dL (0.6-1.3); MAGNESIUM 2.1 mg/dL (1.8-2.4); POTASSIUM 4.7 mmol/L (3.5-5.1)
[2021-02-09 12:43] LABS: INR 1.3; PROTIME 13.7 Seconds (9.20-11.50)
[2021-02-09 12:48] LABS: APTT > 139.0 Seconds (25.0-31.3)
[2021-02-09 12:53] LABS: ABSOLUTE LYMPHOCYTES 1.3 thou/uL (0.8-5.3); ABSOLUTE MONOCYTES 0.4 thou/uL (0.0-1.2); ABSOLUTE NEUTROPHILS 19.2 thou/uL (1.6-8.1); PLATELET ESTIMATE ADEQUATE
[2021-02-09 12:54] LABS: HYPOCHROMASIA 2+
[2021-02-09 12:55] LABS: ANISOCYTOSIS Occasional; MICROCYTES Occasional
--- NOTE | 2021-02-09 13:51 | 2DMMODE ---
[place] [address] 2 D/M-MODE ECHOCARDIOGRAM Name: KRAIG HERNANDEZ Room: [address] IN [facility]#: [id number] Admission: 02/01/21 Attend Phys: Janes Moyer, Discharge: Date of : 41 Date of Service: 02/09/21 1351 Report #: [id number] THIS REPORT FOR: cc: Marco A Blanco MD, Meng MD Holkins,Florentin Steele MD [facility] ~ ADDENDUM APPROVED REPORT Study performed: 02/09/2021 09:49:52 EXAM: Limited 2D Echocardiogram Patient Location: In-Patient Room #: 001 Status: routine BSA: 2.57 HR: 79 bpm BP: 87/49 mmHg Rhythm: NSR Other Information Study Quality: Good Indications Congestive Heart Failure post code re-assess EF Left Ventricle The left ventricle is normal size. There is normal LV segmental wall motion. Mild concentric left ventricular hypertrophy. The left ventricular systolic function is normal. The left ventricular ejection fraction is within the normal range. LVEF is 60-65%. Right Ventricle The right ventricle is normal size. The right ventricular systolic function is normal. Atria The left atrium size is normal. The right atrium size is normal. Aortic Valve The aortic valve is normal in structure. Mitral Valve [facility] [address] [place] [address] 2 D/M-MODE ECHOCARDIOGRAM Name: KRAIG HERNANDEZ Room: [address] IN .R.#: [id number] Admission: 02/01/21 Attend Phys: Janes Moyer, Discharge: Date of : 41 Date of Service: 02/09/21 1351 Report #: [id number] The mitral valve is normal in structure. Tricuspid Valve The tricuspid valve is normal in structure. Trace to mild tricuspid regurgitation. Mild pulmonary hypertension. The RVSP is 30-35 mmHg. Mild tricuspid regurgitation. Mild pulmonary hypertension Great Vessels The aortic root is normal in size. IVC is normal in size and collapses >50% with inspiration. Pericardium There is no pericardial effusion. <Conclusion> The left ventricle is normal size. Mild concentric left ventricular hypertrophy. The left ventricular systolic function is normal. The left ventricular ejection fraction is within the normal range. LVEF is 60-65%. The right ventricle is normal size. The left atrium size is normal. The right atrium size is normal. The aortic valve is normal in structure. The mitral valve is normal in structure. The tricuspid valve is normal in structure. IVC is normal in size and collapses >50% with inspiration. There is no pericardial effusion. There is normal LV segmental wall motion. Mild pulmonary hypertension. The RVSP is 30-35 mmHg. Mild tricuspid regurgitation. <ELECTRONICALLY SIGNED> By: Florentin Weber MD, FACC 02/09/21 135 135 135 Florentin Weber MD, FACC /INF
--- NOTE | 2021-02-09 14:26 | NUR ---
RIGHT SINGLE LUMEN PICC LINE REMOVED VIA OVERWIRE EXCHANGE PROCEDUREWITH STERILE DRAPE AND STERILE FIELD, 42CM RECOVERED. 5 ZIMBABWEAN TRIPLE LUMEN PICC PRE-TRIMMED TO 42CM AND ADVANCED TO THE ZERO JOAN WITH NO RESISTANCE MET. SHERLOCK MAGNET AND 3CG CONFIRMATION OF TIP TERMINATION AT THE CAVOATRIL JUNCTION APPRECIATED. GUDIE WIRE REMOVED, LINE FLUSHED AND INSERTION SITE DRESSED. REPORT GIVEN TO GISELE MARTINEZ.
--- NOTE | 2021-02-09 19:31 | NUR ---
PT ARRIVED TO UNIT 0850 FROM TELEMETRY POST CODE X2, PT ON VENTILATOR, RT, NURSING, PHARMACY, AND PHYSICIAN STAFF AT BEDSIDE TO ASSUME CARE. PT REMAINED UNSTABLE THROUGHOUT REMAINDER OF CARE. PHYSICIANS REMAINED AT BEDSIDE ADJUSTING ORDERS NEEDED. PT PLACED ON LEVO, BE, EPI GTTS AT MAX RATE, PT REMAINED HYPOTENSIVE. PT ALSO REMAINED ANURIC POST JUAREZ PLACEMENT, CONFIRMED WITH BALDDER SCAN. PT CODED A THIRD TIME IN ICU. PT REMAINED UNRESPONSIVE THROUGHOUT CARE. FAMILY KEPT UPDATED. FAMILY MADE THE DECISION TO WITHDRAWAL CARE. PT EXTUBATED AT 1445 AND ALL GTTS TURNED OFF PER FAMILY WISHES AND WITH PHYSICIAN AGREEMENT. ALL FAMILY REMAINED AT BEDSIDE. PT REMAINED UNRESPONSIVE. TIME OF DETERMINED BY THIS RN AND TIA Lomax RN AT 1530. POST PROCEDURES FOLLOWED PER HOSPITAL PROTOCOL. DR JOSE WILL SIGN CERT.
--- NOTE | 2021-02-12 14:49 | EKG ---
[place] [address] ELECTROCARDIOGRAM REPORT Name: KRAIG HERNANDEZ Room: [address] IN M.R.#: [id number] Admission: 02/01/21 Attend Phys: Janes Moyer, Discharge: 02/09/21 Date of : 41 Date of Service: 02/09/21 0833 Report #: [id number] THIS REPORT FOR: //name// [facility] Test Date: 2021-02-09 Test Time: 08:33:11 Pat Name: KRAIG HERNANDEZ Department: Room: [address] Gender: M Ironer Sock: SEHT : 1945 Requested By: Janes Moyer Order Number: [id number] Reading MD: Anastacio Schulte Measurements Intervals [place] Rate: 112 P: -72 UT: 224 QRS: -59 QRSD: 150 T: 50 QT: 300 QTc: 410 Interpretive Statements Sinus or ectopic atrial tachycardia with pvc Borderline prolonged UT interval Right bundle branch block left anterior fasicular block late transition Compared to ECG 02/01/2021 05:28:08 rate has increased pvc noted Electronically Signed On 02-12-2021 14:49:32 CDT by Anastacio Schulte [email or web address] <ELECTRONICALLY SIGNED> By: Anastacio Schulte MD, [facility] 02/12/21 1449 0833 Anastacio Schulte MD, [facility] /EPI
--- NOTE | 2021-02-12 14:50 | EKG ---
[place] [address] ELECTROCARDIOGRAM REPORT Name: KRAIG HERNANDEZ Room: [address] IN M..#: [id number] Admission: 02/01/21 Attend Phys: Janes Moyer, Discharge: 02/09/21 Date of : 41 Date of Service: 02/09/21 0834 Report #: [id number] THIS REPORT FOR: //name// [facility] Test Date: 2021-02-09 Test Time: 08:34:53 Pat Name: KRAIG HERNANDEZ Department: Room: [address] Gender: M Correspondence Renew Clerk: SETH : 1945 Requested By: Janes Moyer Order Number: [id number] Reading MD: Anastacio Schulte Measurements Intervals [place] Rate: 105 P: [place]: QRS: 127 QRSD: 176 T: -19 QT: 368 QTc: 487 Interpretive Statements Junctional tachycardia RBBB and LPFB Compared to ECG 02/09/2021 08:33:11 Junctional tachycardia now present Left posterior fascicular block now present Myocardial infarct finding no longer present Electronically Signed On 02-12-2021 14:50:29 CDT by Anastacio Schulte [email or web address] <ELECTRONICALLY SIGNED> By: Anastacio Schulte MD, [facility] 02/12/21 1450 0834 0834 Anastacio Schulte MD, [facility] /EPI
--- NOTE | 2021-02-12 16:40 | CON ---
[address] [address] CONSULTATION Name: KRAIG HERNANDEZ Merlene Room: [address] IN .R.#: [id number] Admission: 02/01/21 Attend Phys: Janes Moyer MD Discharge: 02/09/21 Date of : 41 Report #: [id number] THIS REPORT FOR: cc: Marco A Blanco MD, Meng MD Pervez, Adeel MD ~ DATE OF CONSULTATION: 02/09/2021 CONSULT REQUESTED BY: Dr. Glynn. INDICATION FOR CONSULTATION: Acute on chronic hypercarbic respiratory failure/ventilator management. HISTORY OF PRESENT ILLNESS: A 75-year-old gentleman with past medical history as mentioned below. The patient has been in the hospital since 02/01. He uses a Trilogy at home, has had osteomyelitis as well as cellulitis and is being planned for surgery. He did have a cardiac arrest this morning and subsequently was endotracheally intubated and transferred to the ICU. Initially, the patient was markedly hypoxemic and was difficult to oxygenate. He was also hypotensive and required multiple pressors to maintain blood pressure. We tried various ventilator settings. Eventually, we were able to bring the patient's O2 saturation up to the normal range and we were able to eventually maintain blood pressure. While in the ICU, the patient had another cardiac arrest as well and needed more chest compressions. There was suspicion of pulmonary emboli initially and he was given IV heparin. We had an echocardiogram performed as well. This showed only mild elevation in right heart pressures to around 30-35. The patient subsequently did have a pleural effusion appear on the right side of his chest. Note that he was receiving chest compressions and there was suspicion of a hemothorax. The patient's family at this point decided to make him comfort measures and therefore, the patient was taken off the ventilator and he subsequently peacefully. <ELECTRONICALLY SIGNED> By: Theo Neil MD 02/12/21 1640 1834 [id number] Neil MD /nt
== END 2021-02-09 15:30 | DRG 208 ==
LOC: M.ERS 05:15 → M.TBA-ER 06:52 → M.2W 06:52 → M.ICU 02-09 08:46
PROVIDERS: Family Medicine; Internal Medicine; Internal Medicine Critical Care Medicine; Personal Emergency Response Attendant; ADMIT Internal Medicine; ATTEND Internal Medicine
DX: J96.22 Acute and chronic respiratory failure with hypercapnia (principal); I50.33 Acute on chronic diastolic (congestive) heart failure; I13.0 Hypertensive heart and chronic kidney disease with heart failure and stage 1 through stage 4 chronic kidney disease, or unspecified chronic kidney disease; L03.116 Cellulitis of left lower limb; L03.115 Cellulitis of right lower limb; J94.2 Hemothorax; M86.8X7 Other osteomyelitis, ankle and foot; Z68.43 Body mass index [BMI] 50.0-59.9, adult; J44.1 Chronic obstructive pulmonary disease with (acute) exacerbation; N17.9 Acute kidney failure, unspecified; E11.69 Type 2 diabetes mellitus with other specified complication; J96.21 Acute and chronic respiratory failure with hypoxia; E11.649 Type 2 diabetes mellitus with hypoglycemia without coma; E11.621 Type 2 diabetes mellitus with foot ulcer; N18.30 Chronic kidney disease, stage 3 unspecified; I89.0 Lymphedema, not elsewhere classified; E11.22 Type 2 diabetes mellitus with diabetic chronic kidney disease; L89.629 Pressure ulcer of left heel, unspecified stage; L89.619 Pressure ulcer of right heel, unspecified stage; B96.6 Bacteroides fragilis [B. fragilis] as the cause of diseases classified elsewhere; B96.5 Pseudomonas (aeruginosa) (mallei) (pseudomallei) as the cause of diseases classified elsewhere; Z20.822 Contact with and (suspected) exposure to COVID-19; E66.9 Obesity, unspecified; I16.0 Hypertensive urgency; Z90.49 Acquired absence of other specified parts of digestive tract; Z87.442 Personal history of urinary calculi; Z88.8 Allergy status to other drugs, medicaments and biological substances; Z79.82 Long term (current) use of aspirin; Z79.899 Other long term (current) drug therapy